=== PATIENT | female | born 1945 | race Caucasian/White ===

== ENCOUNTER 2019-03-08 22:52 | Inpatient (IN) | payer MEDICARE, OTHER ==
[~2019-03-08] VITALS: Ht 157.5 cm; Wt 65.1 kg
--- NOTE | 2019-03-08 23:09 | ERD ---
ER Documentation Chief Complaint Chief Complaint [id number] from home,near syncope,dizziness,A-fib on route to ER per EMS HPI This is a 73-year-old woman with multiple medical conditions brought in by EMS from home for 2 near syncopal episodes this evening when going from a sitting to standing position. Her daughter caught her and prevented her from falling down or injuring herself. Patient states she felt dizzy and lightheaded at the scene and was transported here without further complications. Patient has had no vomiting or diarrhea, no complaints of chest pain or shortness of breath, no recent fevers or chills. Patient and her daughter who is at the bedside deny history of atrial fibrillation. ROS All systems reviewed and are negative except as per history of present illness. Medications Home Meds Reported Medications Paliperidone Palmitate (Invega Sustenna) 234 Mg/1.5 Ml Disp.syrin, IM every 3 months 03/09/19 Labetalol Hcl* (Labetalol Hcl*) 200 Mg Tablet, 0.5 BID 03/09/19 Solifenacin* (Vesicare*) 5 Mg Tablet, 1 HS 03/08/19 Ferrous Sulfate (Iron) 325 Mg Capsule.er, 1 DAILY 03/08/19 Atorvastatin* (Atorvastatin*) 40 Mg Tablet, 1 DAILY 03/08/19 Furosemide (Lasix) 40 Mg Tab, 1 DAILY 03/08/19 Benztropine Mesylate* (Benztropine Mesylate*) 0.5 Mg Tablet, 1 DAILY 03/08/19 Amlodipine Besylate* (Amlodipine Besylate*) 5 Mg Tablet, 1 DAILY 03/08/19 Folic Acid* (Folic Acid*) 1 Mg Tablet, 1 DAILY 03/08/19 Aspirin (Aspirin Low Dose) 81 Mg Tablet.dr, 1 DAILY 03/08/19 Hydralazine Hcl* (Hydralazine Hcl*) 50 Mg Tab, 1 BID 03/08/19 Docusate Sodium (Dok) 100 Mg Capsule, 1 bid prn 03/08/19 Citalopram Hydrobromide* (Citalopram Hydrobromide*) 20 Mg Tablet, 1 DAILY 03/08/19 Calcium Carbonate/Vitamin D2 (Oyster Calcium 250 Mg +D Tab) 1 Tab Tablet, 1 BID 03/08/19 Potassium Chloride (Klor-Con M20) 20 Meq Tab.prt.sr, 1 DAILY 03/08/19 Metformin* (Glucophage*) 1,000 Mg Tablet, 1 BID 03/08/19 Discontinued Reported Medications Labetalol Hcl* (Labetalol Hcl*) 200 Mg Tablet, 1 BID 03/08/19 Allergies Allergies: Coded Allergies: Sulfa (Sulfonamide Antibiotics) (Verified Allergy, Unknown, SOB, 03/08/19) PMhx/Soc Obesity, CHF, CAD status post CABG, hypertension, diabetes mellitus FmHx Family History: diabetes Physical Exam Vitals Vital Signs Date Temp Pulse Resp B/P (MAP) Pulse Ox O2 O2 Flow FiO2 Time Delivery Rate 03/09/19 96 16 119/80 98 Room Air 01:50 (93) 03/09/19 138 16 128/82 98 Room Air 01:35 (97) 03/09/19 130 16 130/72 99 Room Air 01:04 (91) 03/08/19 139 16 145/99 98 Room Air 23:32 (114) 03/08/19 98.4 133 18 149/79 97 23:00 (102) Physical Exam GENERAL: Well-developed, well-nourished, appears dehydrated, afebrile HEENT: Dry mucous membranes, pink conjunctiva, no cervical spine tenderness or step-off deformities NEURO: Alert and oriented 1, able to answer simple questions and follow simple commands, no focal deficits or facial asymmetry, pupils equal round reactive to light CARDIAC: Tachycardic, no murmurs rubs or gallops LUNGS: Clear bilaterally no wheezing crackles or stridor ABDOMEN: Soft nontender, no guarding, no rigidity, no rebound, no psoas sign no obturator sign. SKIN: Warm and dry to touch, no abrasions, contusions, or hematomas, no lacerations, no ecchymosis, no target lesions, and without ulcers EXTREMITIES: No clubbing cyanosis or edema, calves are bilaterally symmetrical, no Homans sign, no popliteal cord sign. Distal pulses equal and bilateral PSYCH: Appears anxious Result Diagram: 03/08/19 2325 03/08/19 2325 Results 24 hrs Laboratory Tests Test 03/08/19 23:25 White Blood Count 9.2 10^3/ul Red Blood Count 3.89 10^6/ul Hemoglobin 11.8 g/dl Hematocrit 35.5 % Mean Corpuscular Volume 91.3 fl Mean Corpuscular Hemoglobin 30.3 pg Mean Corpuscular Hemoglobin Concent 33.2 g/dl Red Cell Distribution Width 12.8 % Platelet Count 266 10^3/UL Mean Platelet Volume 11.2 fl Immature Granulocytes % 0.300 % Neutrophils % 67.3 % Lymphocytes % 19.4 % Monocytes % 8.5 % Eosinophils % 4.0 % Basophils % 0.5 % Nucleated Red Blood Cells % 0.0 /100WBC Immature Granulocytes # 0.030 10^3/ul Neutrophils # 6.2 10^3/ul Lymphocytes # 1.8 10^3/ul Monocytes # 0.8 10^3/ul Eosinophils # 0.4 10^3/ul Basophils # 0.1 10^3/ul Nucleated Red Blood Cells # 0.0 10^3/ul Urine Color YELLOW Urine Clarity SLIGHTLY CLOUDY Urine pH 6.0 Urine Specific [place] 1.009 Urine Ketones NEGATIVE mg/dL Urine Nitrite NEGATIVE mg/dL Urine Bilirubin NEGATIVE mg/dL Urine Urobilinogen NEGATIVE mg/dL Urine Leukocyte Esterase 1+ Estefany/ul Urine Microscopic RBC 2 /HPF Urine Microscopic WBC 13 /HPF Urine Bacteria FEW /HPF Urine Hemoglobin NEGATIVE mg/dL Urine Glucose NEGATIVE mg/dL Urine Total Protein NEGATIVE mg/dl Sodium Level 144 mmol/L Potassium Level 4.3 mmol/L Chloride Level 103 mmol/L Carbon Dioxide Level 24 mmol/L Anion Gap 17 Blood Urea Nitrogen 32 mg/dl Creatinine 1.44 mg/dl Est Glomerular Filtrat Rate mL/min mL/min Glucose Level 146 mg/dl Calcium Level 10.0 mg/dl Total Bilirubin 0.3 mg/dl Direct Bilirubin 0.00 mg/dl Indirect Bilirubin 0.3 mg/dl Aspartate Amino Transf (AST/SGOT) 26 IU/L Alanine Aminotransferase (ALT/SGPT) 16 IU/L Alkaline Phosphatase 71 IU/L Troponin I 0.027 ng/ml B-Type Natriuretic Peptide 2590 PG/ML Total Protein 7.8 g/dl Albumin 4.6 g/dl Globulin 3.20 g/dl Albumin/Globulin Ratio 1.43 Lipase 134 U/L Current Medications Medications Dose Sig/Megan Start Time Status Last (Trade) Ordered Route PRN Stop Time Admin Dose Reason Admin Nicardipine 30 mg ONCE ONCE 03/08/19 DC 03/08/19 HCl PO 23:30 23:32 (Cardene) 03/08/19 23:31 Ceftriaxone 50 ml @ ONCE ONCE 03/09/19 DC 03/09/19 Sodium 100 mls/hr IVPB 01:00 03/09/19 01:03 01:29 Lorazepam 0.5 mg ONCE ONCE 03/09/19 DC 03/09/19 (Ativan) PO 01:00 03/09/19 01:03 01:01 Diltiazem 20 mg ONCE ONCE 03/09/19 DC 03/09/19 HCl IV 01:30 03/09/19 01:34 (Cardizem Iv) 01:31 IV Flush 3 ml PER 03/09/19 (NS 3 ml) PROTOCOL IV 01:30 Ondansetron 4 mg Q6H PRN 03/09/19 HCl (Zofran IV 01:30 Inj) NAUSEA/VOMITI NG Aspirin 81 mg DAILY PO 03/09/19 (Aspirin) 09:00 1 tab Q5M PRN 03/09/19 Nitroglycerin SL .CHEST 01:30 PAIN (Nitroglyceri n (Sl Tab) 0.4 Mg) 650 mg Q6H PRN 03/09/19 Acetaminophen PO .PAIN 1-3 01:30 (Tylenol OR TEMP Tab) Docusate 100 mg Q12H PRN 03/09/19 Sodium PO 01:30 (Colace) .CONSTIPATION Bisacodyl 5 mg DAILY PRN 03/09/19 (Dulcolax) PO 01:30 .CONSTIPATION Magnesium 50 ml @ 25 ONCE ONCE 03/09/19 Sulfate mls/hr IVPB 02:00 03/09/19 03:59 Discontinue ONCE ONCE 03/09/19 DC Miscellaneous current oral XX 02:00 03/09/19 sulfonylur... 02:00 Information (* Miscellaneous Pharmacy Order) Diagnostic 1 ea 02 XX 03/09/19 Test (Pha) 02:00 (Accu-Chek) ONCE ONCE 03/09/19 Miscellaneous HYPOGLYCEMIA XX 02:00 03/09/19 PROTOCOL 02:01 Information w... (* Miscellaneous Pharmacy Order) Insulin NOVOLOG WITH MEALS 03/09/19 Aspart *MILD* BEDTIME SC 08:00 (Novolog ALGORITHM Insulin Pen) Discontinue ONCE ONCE 03/09/19 DC Miscellaneous all previ... XX 02:00 03/09/19 02:00 Information (* Miscellaneous Pharmacy Order) 1 ea NOTE XX 03/09/19 Miscellaneous 02:00 Information Glucose 15 gm Q15M PRN 03/09/19 (Glutose) PO DECREASED 02:00 GLUCOSE Glucose 22.5 gm Q15M PRN 03/09/19 (Glutose) PO DECREASED 02:00 GLUCOSE Dextrose 25 ml Q15M PRN 03/09/19 (D50w IV DECREASED 02:00 Syringe) GLUCOSE Dextrose 50 ml Q15M PRN 03/09/19 (D50w IV DECREASED 02:00 Syringe) GLUCOSE Glucagon 1 mg Q15M PRN 03/09/19 (Glucagen) IM DECREASED 02:00 GLUCOSE Glucose 15 gm Q15M PRN 03/09/19 (Glutose) BUCCAL 02:00 DECREASED GLUCOSE Procedures/MDM IV line was established patient was placed on panel monitor rhythm strip revealed a narrow complex tachycardia at 140 bpm with upright P and T waves. Patient was afebrile EKG performed, read by me revealed an atrial fibrillation with rapid ventricular rate at 134 bpm, normal axis, right ventricular conduction delay QRS duration 100 ms, no concerning ST elevations or depressions noted 1 view chest x-ray performed, read by me reveals atelectatic changes bilaterally, sternotomy wires, no acute infiltrates, no pneumothorax. For A. fib with RVR I administered nicardipine 30 mg p.o. x1. For anxiety I later administer lorazepam 0.5 mg p.o. x1. CBC was unremarkable, electrolytes revealed dehydration with a BUN/creatinine of 32/1.4, liver function tests were normal, troponin was negative, urinalysis positive for infection, BNP elevated I treated her here with ceftriaxone 1 g IV I administered diltiazem 20 mg IV x1 for A. fib with RVR. Critical Care: Time: 43 minutes, this was time separate from other billable procedures. Treatments/Evaluations: Close monitoring and treatment of unstable vital signs, cardiorespiratory, and neurologic status, while maintaining tight balance of fluid, respiratory, and cardiac interventions. Repeat EKG after diltiazem therapy revealed an atrial fibrillation rate controlled at 79 bpm, normal axis, right ventricular conduction delay QRS duration 104 ms, no concerning ST elevations or depressions noted Patient admitted to telemetry setting Departure Diagnosis: Primary Impression: Near syncope Additional Impressions: Atrial fibrillation with RVR Acute dehydration Acute UTI Condition: JULIEN Bhatia MD Mar 08, 2019 23:09
[2019-03-08] MEDS ORDERED: NICARDipine HCL 30 MG CAPSULE PO ONE (23:30)
[2019-03-08] MEDS ORDERED: ATOR40TA68 (23:48)
[2019-03-08] MEDS ORDERED: AMLO-145 (23:48)
[2019-03-08] MEDS ORDERED: ASPI-818 (23:48)
[2019-03-08] MEDS ORDERED: CITA20TA8 (23:48)
[2019-03-08] MEDS ORDERED: POTA20TA9 (23:48)
[2019-03-08] MEDS ORDERED: LABE200T25 (23:48)
[2019-03-08] MEDS ORDERED: FURO40TA4 (23:48)
[2019-03-08] MEDS ORDERED: DOCU-216 (23:48)
[2019-03-08] MEDS ORDERED: CALC-5 (23:48)
[2019-03-08] MEDS ORDERED: BENZ0.5T41 (23:48)
[2019-03-08] MEDS ORDERED: HYDR-3672 (23:48)
[2019-03-08] MEDS ORDERED: FOLI-49 (23:48)
[2019-03-08] MEDS ORDERED: MTF1000T (23:48)
[2019-03-08] MEDS ORDERED: SOLI5TAB2 (23:48)
[2019-03-08] MEDS ORDERED: FERR325C (23:48)
[2019-03-09] VITALS (8 sets, daily range): BP systolic 150–179; BP diastolic 72–84; PULSE 57–72; RESP 18–19; Ht 157.5 cm; Wt 65.1 kg
[2019-03-09] MEDS ORDERED: LABE200T25 (00:11)
[2019-03-09] MEDS ORDERED: PALI234D IM (00:11)
[2019-03-09] MEDS ORDERED: CEFTRIAXONE 1 GM/50 ML (PMX) 50 ML IVPB ONE (01:00)
[2019-03-09] MEDS ORDERED: LORAZEPAM 0.5 MG TAB PO ONE (01:00)
[2019-03-09] MEDS ORDERED: ONDANSETRON 4 MG INJ IV PRN (01:30)
[2019-03-09] MEDS ORDERED: BISACODYL (EC) 5 MG TAB PO PRN (01:30)
[2019-03-09] MEDS ORDERED: DILTIAZEM 25 MG INJ IV ONE (01:30)
[2019-03-09] MEDS ORDERED: ACETAMINOPHEN 325 MG TAB PO PRN (01:30)
[2019-03-09] MEDS ORDERED: NITROGLYCERIN (SL) 0.4 MG TAB SL PRN (01:30)
[2019-03-09] MEDS ORDERED: DOCUSATE SODIUM 100 MG CAP PO PRN (01:30)
[2019-03-09] MEDS ORDERED: NACL 0.9% 3 ML SYG IV SCH (01:30)
[2019-03-09] MEDS ORDERED: GLUCAGON 1 MG INJ IM PRN (02:00)
[2019-03-09] MEDS ORDERED: GLUCOSE GEL 15 GRAM TUBE BUCCAL PRN (02:00)
[2019-03-09] MEDS ORDERED: DEXTROSE 50% 50 ML SYRINGE IV PRN ×2 (02:00)
[2019-03-09] MEDS: ACCU-CHEK XX SCH (02:00)
[2019-03-09] MEDS ORDERED: GLUCOSE GEL 15 GRAM TUBE PO PRN ×2 (02:00)
[2019-03-09] MEDS ORDERED: MAGNESIUM SULFATE 2 GM/50 ML 50 ML IVPB ONE (02:00)
--- NOTE | 2019-03-09 06:52 | HP ---
Date/Time of Note Date/Time of Note DATE: 03/09/19 TIME: 06:47 Assessment/Plan VTE Prophylaxis Pharmacological prophylaxis: LMWH Lines/Catheters IV C[facility]from [facility] Saline Lock Assessment/Plan Hospital Course This is a 73-year female being admitted to the telemetry floor for: #1 A. fib with RVR: Patient converted to normal sinus rhythm after receiving a dose of Cardizem 10 mg IV x1. Will monitor on telemetry. Will check a TSH, magnesium, potassium levels. Will check an echocardiogram. Chadsvasc:4, currently on aspirin 81 mg p.o. daily, will add Lovenox 1 randa per kick every 12 hours renally dose. Will consult cardiology. Further anticoagulations as per cardio recommendations #2 near-syncope:. Possibly secondary to underlying orthostatic hypotension, A. fib with RVR, underlying UTI Will check orthostatics. Carotid Doppler consult cardiology. #3 coronary artery disease: Resume patient's home medications, will check an echocardiogram #4 acute kidney injury: I do not have a previous baseline creatinine.: Possibly secondary to mild dehydration, diuretic use. Avoid nephrotoxic agents, monitor renal function and proceed with further work-up if indicated. #5 normocytic anemia: No signs of bleeding. Will check iron stores #6 elevated BNP: BNP of 2590. Will check an echocardiogram. Consult cardiolo gy. #7. Urinary tract infection:, Ceftriaxone 1 g every 24 hours #8 diabetes mellitus: We will check hemoglobin A1c will hold metformin at the current time, #9 hyperlipidemia: We will check lipid panel, home PPI #10. History of breast cancer: Left breast mastectomy, currently stable #11 DVT GI prophylaxis: Lovenox, no GI prophylaxis indicated Result Diagram: 03/09/19 0550 03/09/19 0550 Results 24hrs Laboratory Tests Test 03/08/19 23:25 03/09/19 05:50 White Blood Count 9.2 7.7 Red Blood Count 3.89 L 3.77 L Hemoglobin 11.8 L 11.5 L Hematocrit 35.5 L 34.2 L Mean Corpuscular Volume 91.3 90.7 Mean Corpuscular Hemoglobin 30.3 30.5 Mean Corpuscular Hemoglobin Concent 33.2 33.6 Red Cell Distribution Width 12.8 12.7 Platelet Count 266 243 Mean Platelet Volume 11.2 H 11.8 H Immature Granulocytes % 0.300 0.300 Neutrophils % 67.3 59.5 Lymphocytes % 19.4 26.5 Monocytes % 8.5 10.0 Eosinophils % 4.0 3.1 Basophils % 0.5 0.6 Nucleated Red Blood Cells % 0.0 0.0 Immature Granulocytes # 0.030 0.020 Neutrophils # 6.2 4.6 Lymphocytes # 1.8 2.1 Monocytes # 0.8 0.8 Eosinophils # 0.4 0.2 Basophils # 0.1 0.1 Nucleated Red Blood Cells # 0.0 0.0 Urine Color YELLOW Urine Clarity SLIGHTLY CLOUDY A Urine pH 6.0 Urine Specific [place] 1.009 Urine Ketones NEGATIVE Urine Nitrite NEGATIVE Urine Bilirubin NEGATIVE Urine Urobilinogen NEGATIVE Urine Leukocyte Esterase 1+ H Urine Microscopic RBC 2 Urine Microscopic WBC 13 H Urine Bacteria FEW A Urine Hemoglobin NEGATIVE Urine Glucose NEGATIVE Urine Total Protein NEGATIVE Sodium Level 144 142 Potassium Level 4.3 4.3 Chloride Level 103 104 Carbon Dioxide Level 24 25 Anion Gap 17 H 13 Blood Urea Nitrogen 32 H 38 H Creatinine 1.44 H 1.22 H Est Glomerular Filtrat Rate mL/min Glucose Level 146 104 # Calcium Level 10.0 9.6 Total Bilirubin 0.3 0.3 Direct Bilirubin 0.00 0.00 Indirect Bilirubin 0.3 0.3 Aspartate Amino Transf (AST/SGOT) 26 37 Alanine Aminotransferase (ALT/SGPT) 16 11 L Alkaline Phosphatase 71 75 Troponin I 0.027 B-Type Natriuretic Peptide 2590 H Total Protein 7.8 7.9 Albumin 4.6 4.5 Globulin 3.20 3.40 H Albumin/Globulin Ratio 1.43 1.32 Lipase 134 Prothrombin Time 12.7 Prothrombin Time Ratio 1.0 INR International Normalized Ratio 0.94 Activated Partial Thromboplast Time 27.5 Magnesium Level 1.9 HPI/ROS Admit Date/Time Admit Date/Time Mar 09, 2019 at 01:31 Hx of Present Illness Chief complaint: Near syncope, dizziness This is a 73-year-old woman with with past medical history of schizophrenia, hypertension, diabetes mellitus, hyperlipidemia, breast cancer who presented via EMS from home fort two near syncopal episodes that occurred last night from a sitting to standing position. Her daughter caught her and prevented her from falling down or injuring herself. Patient states she felt dizzy and lightheaded at the scene and was transported here without further complications. Patient has had no vomiting or diarrhea, no complaints of chest pain or shortness of breath, no recent fevers or chills. Patient and her daughter who is at the bedside deny history of atrial fibrillation. She was in rapid A. fib with RVR in the emergency department, she did receive a dose of Cardizem 20 mg IV x1 which did result in good response and converted the patient back to sinus rhythm. I also ordered magnesium 2 mg IV x1 Allergies: NKDA medications: Colace 100 mg p.o. twice daily as needed Lasix 40 mg p.o. daily Hydralazine 50 mg p.o. twice daily Labetalol 200 half tab Metformin 1000 mg p.o. twice daily Potassium chloride 20 me q. p.o. daily Vesicare 5 mg p.o. nightly Iron ferrous sulfate 1 tablet daily Invega Sustenna to 34 mg injections 3 months ROS Const: As per HPI Eyes : No pain discharge or redness or change in visual acuity ENT: No pain, sore throat, congestion, congestion, dysphagia or discharge Respiratory: As per HPI Cardiovascular: No chest pain, palpitation, PND, or edema GI : no change in appetite, abdominal pain, nausea, vomiting, diarrhea, constipation, or change in the color his stool Genitourinary: No dysuria, hematuria, flank pain , discharge or CVA tenderness Musculoskeletal: No joint pain, back pain, neck pain, restricted range of motion in neck or joints Skin: No rash, bruising or hives Neuro: No headache, dizziness, syncope, seizure, focal weakness Endocrine: No polyuria, polydipsia, temperature intolerance Psych: No hallucination, depression, anxiety or suicidal ideation PMH/Family/Social Past Medical History Hypertension, diabetes mellitus, hyperlipidemia, history of breast CA Medications Current Medications IV Flush (NS 3 ml) 3 ml PER PROTOCOL IV ; Start 03/09/19 at 01:30 Ondansetron HCl (Zofran Inj) 4 mg Q6H PRN IV NAUSEA/VOMITING; Start 03/09/19 at 01:30 Aspirin (Aspirin) 81 mg DAILY PO ; Start 03/09/19 at 09:00 Nitroglycerin (Nitroglycerin (Sl Tab) 0.4 Mg) 1 tab Q5M PRN SL .CHEST PAIN; Start 03/09/19 at 01:30 Acetaminophen (Tylenol Tab) 650 mg Q6H PRN PO .PAIN 1-3 OR TEMP; Start 03/09/19 at 01:30 Docusate Sodium (Colace) 100 mg Q12H PRN PO .CONSTIPATION; Start 03/09/19 at 01:30 Bisacodyl (Dulcolax) 5 mg DAILY PRN PO .CONSTIPATION; Start 03/09/19 at 01:30 Diagnostic Test (Pha) (Accu-Chek) 1 ea 02 XX ; Start 03/09/19 at 02:00 Insulin Aspart (Novolog Insulin Pen) NOVOLOG *MILD* ALGORITHM WITH MEALS BEDTIME SC ; Start 03/09/19 at 07:55 Miscellaneous Information 1 ea NOTE XX ; Start 03/09/19 at 02:00 Glucose (Glutose) 15 gm Q15M PRN PO DECREASED GLUCOSE; Start 03/09/19 at 02:00 Glucose (Glutose) 22.5 gm Q15M PRN PO DECREASED GLUCOSE; Start 03/09/19 at 02:00 Dextrose (D50w Syringe) 25 ml Q15M PRN IV DECREASED GLUCOSE; Start 03/09/19 at 02:00 Dextrose (D50w Syringe) 50 ml Q15M PRN IV DECREASED GLUCOSE; Start 03/09/19 at 02:00 Glucagon (Glucagen) 1 mg Q15M PRN IM DECREASED GLUCOSE; Start 03/09/19 at 02:00 Glucose (Glutose) 15 gm Q15M PRN BUCCAL DECREASED GLUCOSE; Start 03/09/19 at 02:00 Ceftriaxone Sodium 50 ml @ 100 mls/hr Q24H IVPB ; Start 03/10/19 at 01:00 Coded Allergies: Sulfa (Sulfonamide Antibiotics) (Verified Allergy, Unknown, SOB, 03/08/19) Past Surgical History Left breast mastectomy, CABG Social History Alcohol Use: none Smoking Status: Never smoker Drug Use: none Exam/Review of Systems Vital Signs Vitals Vital Signs Date Temp Pulse Resp B/P (MAP) Pulse Ox O2 O2 Flow FiO2 Time Delivery Rate 03/09/19 71 16 118/71 97 Room Air 04:35 (87) 03/09/19 98.2 04:00 Exam Exam General: Patient is currently lying in bed in no acute distress HEENT: Atraumatic, normocephalic. The pupils are equal, round and reactive. Extraocular motor are intact Neck: Supple with full range of motion. No rigidity or meningismus Chest: Nontender Lungs: Clear to auscultation bilaterally no crackles rales or wheezing Heart: Initially presented in A. fib with RVR, currently sinus rhythm Abdomen: Soft , nontender, nondistended , bowel sounds are present. No guarding no rebound tenderness , No masses or organomegaly. No costovertebral temporal angle mass Extremities: Normal to inspection, no edema no cyanosis Neurologic: Normal mental status, speech normal, cranial nerves II through XII are intact, motor and sensory are intact, no focal weakness Additional Comments PROCEDURE: One view chest radiograph. CLINICAL INDICATION: Abdominal pain TECHNIQUE: An AP view of the chest was obtained. COMPARISON: None FINDINGS: Mediastinum: There is calcification of the wall of the thoracic aorta. Heart size: Normal Pulmonary vasculature: No visible engorgement. Lungs: Clear. Costophrenic sulci: Clear. Bony structures: Median sternotomy wires are present at the level of the aortic arch with surgical clips superimposed on the right hilum. IMPRESSION: 1. Atherosclerosis of the thoracic aorta. 2. No radiographic evidence of acute process in the chest. 3. Evidence of previous surgery. RPTAT:AAJJ Physician El Date Time Electronically viewed and signed by Physician El on 03/09/2019 00:05 GW/ CC: JULIEN GREWAL MD [id number] AMRIT CONDE Mar 09, 2019 06:52
[2019-03-09] MEDS: INSULIN ASPART [NOVOLOG] 3 ML PEN SC SCH ×4 (07:55→21:00)
[2019-03-09] MEDS: ASPIRIN 81 MG TAB PO SCH (08:31)
[2019-03-09] MEDS ORDERED: METOPROLOL 5 MG INJ IV PRN (09:30)
[2019-03-09] MEDS: CITALOPRAM 20 MG TAB PO SCH (11:06)
[2019-03-09] MEDS: BENZTROPINE 1 MG TAB PO SCH (11:06)
[2019-03-09] MEDS: AMLODIPINE 5 MG TAB PO SCH (11:06)
[2019-03-09] MEDS: FOLIC ACID 1 MG TAB PO SCH (11:06)
[2019-03-09] MEDS: FUROSEMIDE 40 MG TAB PO SCH (11:07)
[2019-03-09] MEDS: ENOXAPARIN 80 MG/0.8 ML SYG SC SCH ×2 (11:13→20:37)
--- NOTE | 2019-03-09 14:54 | PN ---
Date/Time of Note Date/Time of Note DATE: 03/09/19 TIME: 14:46 Assessment/Plan VTE Prophylaxis Risk score (from [facility])>0 risk: 2 SCD applied (from [facility]): Yes Pharmacological prophylaxis: LMWH Lines/Catheters IV Catheter Type (from [facility]): Saline Lock Assessment/Plan Hospital Course Assessment and plan 1. A. fib with RVR. - Was given Cardizem 10 mg IV x1 and now appears to be normal sinus rhythm. - Continue telemetry monitoring. - Beet Flumer to follow. - Awaiting echocardiogram. 2. Near syncope. - Likely secondary to #1. - Suspect orthostatic hypotension. - Carotid Doppler with no evidence of hemodynamically significant stenosis. 3. CAD. - Continue statin and antiplatelet therapy. 4. Acute kidney injury. - Monitor renal panel. - Avoid nephrotoxic medications. - Appears to be improving at present. 5. Reported elevated BNP. - Echocardiogram pending. 6. Diabetes. - Continue insulin regimen. - Will adjust as needed. 7. Hyperlipidemia. - Continue statin 8. History of breast cancer. - Patient for outpatient follow-up Disposition and plan. Awaiting cardiology consultation. Echocardiogram pending. Continue monitoring. Discussed POC with Dr. Christina Result Diagram: 03/09/19 0550 03/09/19 0550 Results 24hrs Laboratory Tests Test 03/08/19 23:25 03/09/19 05:50 03/09/19 07:55 03/09/19 11:18 White Blood Count 9.2 7.7 Red Blood Count 3.89 L 3.77 L Hemoglobin 11.8 L 11.5 L Hematocrit 35.5 L 34.2 L Mean Corpuscular 91.3 90.7 Volume Mean Corpuscular 30.3 30.5 Hemoglobin Mean Corpuscular 33.2 33.6 Hemoglobin Concent Red Cell 12.8 12.7 Distribution Width Platelet Count 266 243 Mean Platelet 11.2 H 11.8 H Volume Immature 0.300 0.300 Granulocytes % Neutrophils % 67.3 59.5 Lymphocytes % 19.4 26.5 Monocytes % 8.5 10.0 Eosinophils % 4.0 3.1 Basophils % 0.5 0.6 Nucleated Red 0.0 0.0 Blood Cells % Immature 0.030 0.020 Granulocytes # Neutrophils # 6.2 4.6 Lymphocytes # 1.8 2.1 Monocytes # 0.8 0.8 Eosinophils # 0.4 0.2 Basophils # 0.1 0.1 Nucleated Red 0.0 0.0 Blood Cells # Urine Color YELLOW Urine Clarity SLIGHTLY CLOUDY A Urine pH 6.0 Urine Specific 1.009 [place] Urine Ketones NEGATIVE Urine Nitrite NEGATIVE Urine Bilirubin NEGATIVE Urine Urobilinogen NEGATIVE Urine Leukocyte 1+ H Esterase Urine Microscopic 2 RBC Urine Microscopic 13 H WBC Urine Bacteria FEW A Urine Hemoglobin NEGATIVE Urine Glucose NEGATIVE Urine Total NEGATIVE Protein Sodium Level 144 142 Potassium Level 4.3 4.3 Chloride Level 103 104 Carbon Dioxide 24 25 Level Anion Gap 17 H 13 Blood Urea 32 H 38 H Nitrogen Creatinine 1.44 H 1.22 H Est Glomerular Filtrat Rate mL/min Glucose Level 146 104 # Calcium Level 10.0 9.6 Total Bilirubin 0.3 0.3 Direct Bilirubin 0.00 0.00 Indirect Bilirubin 0.3 0.3 Aspartate Amino 26 37 Transf (AST/SGOT) Alanine 16 11 L Aminotransferase ( ALT/SGPT) Alkaline 71 75 Phosphatase Troponin I 0.027 B-Type Natriuretic 2590 H Peptide Total Protein 7.8 7.9 Albumin 4.6 4.5 Globulin 3.20 3.40 H Albumin/Globulin 1.43 1.32 Ratio Lipase 134 Prothrombin Time 12.7 Prothrombin Time 1.0 Ratio INR International 0.94 Normalized Ratio Activated 27.[address] Time Magnesium Level 1.9 Bedside Glucose 104 180 Subjective 24 Hr Interval Summary Free Text/Dictation Denies any chest pain at this time. Comfortable present. 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1 Basophils % 0.5 0.6 Nucleated Red 0.0 0.0 Blood Cells % Immature 0.030 0.020 Granulocytes # Neutrophils # 6.2 4.6 Lymphocytes # 1.8 2.1 Monocytes # 0.8 0.8 Eosinophils # 0.4 0.2 Basophils # 0.1 0.1 Nucleated Red 0.0 0.0 Blood Cells # Urine Color YELLOW Urine Clarity SLIGHTLY CLOUDY A Urine pH 6.0 Urine Specific 1.009 [place] Urine Ketones NEGATIVE Urine Nitrite NEGATIVE Urine Bilirubin NEGATIVE Urine Urobilinogen NEGATIVE Urine Leukocyte 1+ H Esterase Urine Microscopic 2 RBC Urine Microscopic 13 H WBC Urine Bacteria FEW A Urine Hemoglobin NEGATIVE Urine Glucose NEGATIVE Urine Total NEGATIVE Protein Sodium Level 144 142 Potassium Level 4.3 4.3 Chloride Level 103 104 Carbon Dioxide 24 25 Level Anion Gap 17 H 13 Blood Urea 32 H 38 H Nitrogen Creatinine 1.44 H 1.22 H Est Glomerular Filtrat Rate mL/min Glucose Level 146 104 # Calcium Level 10.0 9.6 Total Bilirubin 0.3 0.3 Direct Bilirubin 0.00 0.00 Indirect Bilirubin 0.3 0.3 Aspartate Amino 26 37 Transf (AST/SGOT) Alanine 16 11 L Aminotransferase ( ALT/SGPT) Alkaline 71 75 Phosphatase Troponin I 0.027 B-Type Natriuretic 2590 H Peptide Total Protein 7.8 7.9 Albumin 4.6 4.5 Globulin 3.20 3.40 H Albumin/Globulin 1.43 1.32 Ratio Lipase 134 Prothrombin Time 12.7 Prothrombin Time 1.0 Ratio INR International 0.94 Normalized Ratio Activated 27.[address] Time Magnesium Level 1.9 Bedside Glucose 104 180 Medications Medication Current Medications IV Flush (NS 3 ml) 3 ml PER PROTOCOL IV ; Start 03/09/19 at 01:30 Ondansetron HCl (Zofran Inj) 4 mg Q6H PRN IV NAUSEA/VOMITING; Start 03/09/19 at 01:30 Aspirin (Aspirin) 81 mg DAILY PO Last administered on 03/09/19at 08:31; Admin Dose 81 MG; Start 03/09/19 at 09:00 Nitroglycerin (Nitroglycerin (Sl Tab) 0.4 Mg) 1 tab Q5M PRN SL .CHEST PAIN; Start 03/09/19 at 01:30 Acetaminophen (Tylenol Tab) 650 mg Q6H PRN PO .PAIN 1-3 OR TEMP; Start 03/09/19 at 01:30 Docusate Sodium (Colace) 100 mg Q12H PRN PO .CONSTIPATION; Start 03/09/19 at 01:30 Bisacodyl (Dulcolax) 5 mg DAILY PRN PO .CONSTIPATION; Start 03/09/19 at 01:30 Diagnostic Test (Pha) (Accu-Chek) 1 ea 02 XX ; Start 03/09/19 at 02:00 Insulin Aspart (Novolog Insulin Pen) NOVOLOG *MILD* ALGORITHM WITH MEALS BEDTIME SC Last administered on 03/09/19at 11:29; Admin Dose 1 UNIT; Start 03/09/19 at 07:55 Miscellaneous Information 1 ea NOTE XX ; Start 03/09/19 at 02:00 Glucose (Glutose) 15 gm Q15M PRN PO DECREASED GLUCOSE; Start 03/09/19 at 02:00 Glucose (Glutose) 22.5 gm Q15M PRN PO DECREASED GLUCOSE; Start 03/09/19 at 02:00 Dextrose (D50w Syringe) 25 ml Q15M PRN IV DECREASED GLUCOSE; Start 03/09/19 at 02:00 Dextrose (D50w Syringe) 50 ml Q15M PRN IV DECREASED GLUCOSE; Start 03/09/19 at 02:00 Glucagon (Glucagen) 1 mg Q15M PRN IM DECREASED GLUCOSE; Start 03/09/19 at 02:00 Glucose (Glutose) 15 gm Q15M PRN BUCCAL DECREASED GLUCOSE; Start 03/09/19 at 02:00 Ceftriaxone Sodium 50 ml @ 100 mls/hr Q24H IVPB ; Start 03/10/19 at 01:00 Amlodipine Besylate (Norvasc) 5 mg DAILY PO Last administered on 03/09/19at 11:06; Admin Dose 5 MG; Start 03/09/19 at 09:30 Aspirin (Halfprin) 81 mg DAILY PO ; Start 03/10/19 at 09:00 Atorvastatin Calcium (Lipitor) 80 mg DAILY PO ; Start 03/10/19 at 09:00 Folic Acid (Folic Acid) 1 mg DAILY PO Last administered on 03/09/19at 11:06; Admin Dose 1 MG; Start 03/09/19 at 09:30 Benztropine Mesylate (Cogentin) 0.5 mg DAILY PO Last administered on 03/09/19at 11:06; Admin Dose 0.5 MG; Start 03/09/19 at 09:30 Citalopram Hydrobromide (Celexa) 20 mg DAILY PO Last administered on 03/09/19 11:06; Admin Dose 20 MG; Start 03/09/19 at 09:30 Metoprolol Tartrate (Lopressor) 2.5 mg Q6H PRN IV HEART RATE GREATER THAN 115; Start 03/09/19 at 09:30 Enoxaparin Sodium (Lovenox) 65 mg Q12 SC Last administered on 03/09/19at 11:13; Admin Dose 65 MG; Start 03/09/19 at 10:30 Furosemide (Lasix) 40 mg DAILY PO Last administered on 03/09/19at 11:07; Admin Dose 40 MG; Start 03/09/19 at 10:30 WENCESLAO LARES NP Mar 09, 2019 14:54
--- NOTE | 2019-03-09 17:25 | RADRPT ---
Echocardiogram Report Patient Name: DUANE PIPERPatient ID: [id number] : 1945 (73y 8m)Study Date: 03/09/2019 10:00:35 AM Gender: FAccession #: [id number] Tech: Ramos Cavazos [facility] Location: [address] Ref.Physician: AMRIT CONDE Height(Cm): BSA: Weight(Kg): Quality: AdequateOrder Physician: AMRIT CONDE Account #: Procedures: Echocardiographic Report: Transthoracic echocardiogram with complete 2D, M-Mode, and doppler examination. Indications: Rapid Atrial Fibrillation w/ RVR. Measurements: 2D/M Mode Doppler Measurement Value Normal Range Measurement Value Normal Range LVIDd 2D 4.2 [ 3.8 - 5.2 ] cm AV Mean Garret 2.0 [ 70.0 - 90.0 ] cm/sec LVIDs 2D 2.9 [ 2.2 - 3.5 ] cm AV Mean PG 18.0 [ 2.0 - 4.0 ] mmHg LVPWd 2D 0.9 [ 0.6 - 0.9 ] cm AV VTI 60.8 cm IVSd 2D 1.1 [ 0.6 - 0.9 ] cm LVOT Peak Garret 1.3 [ 70.0 - 110.0 ] cm/sec AoR Diam 2D 2.5 [ 2.3 - 3.1 ] cm LVOT Peak PG 7.0 [ 2.0 - 6.0 ] mmHg EDV 2D 79.9 [ 46.0 - 106.0 ] ml MV E Peak Garret 1.4 [ 60.0 - 130.0 ] cm/sec ESV 2D 31.9 [ 14.0 - 42.0 ] ml MV A Peak Garret 1.1 [ 100.0 - 120.0 ] cm/sec EF 2D 60.1 [ 54.0 - 74.0 ] percent MV E/A 1.3 [ 0.8 - 1.5 ] ratio LA Dimen 2D 3.8 [ 2.7 - 3.8 ] cm MV Peak Garret 1.6 [ 60.0 - 130.0 ] cm/sec MV Peak PG 10.0 [ 1.0 - 10.0 ] mmHg MV Mean Garret 0.7 cm/sec MV Mean PG 3.0 mmHg MV Decel Time 279 [ 104 - 258 ] msec Lat E` Garret 0.1 [ 10.0 - 15.0 ] cm/sec Lateral E/E` 22.4 [ 1.0 - 2.0 ] ratio Med E` Garret 0.0 cm/sec MV E/A 1.3 [ 0.8 - 1.5 ] ratio MV VTI 40.9 cm TR Peak Garret 2.8 [ 100.0 - 280.0 ] cm/sec TR Peak PG 32.0 mmHg RVSP 42.0 [ 10.0 - 36.0 ] mmHg Findings: Left Ventricle: Normal left ventricular systolic function. Normal left ventricular cavity size. Mild concentric left ventricular hypertrophy. Ejection fraction is visually estimated at 65 %. Tissue Doppler/Mitral Doppler indices are consistent with impaired relaxation (Stage I diastolic dysfunction). Right Ventricle: Normal right ventricular size. Normal right ventricular systolic function. Left Atrium: There is mild enlargement of left atrium. Right Atrium: The right atrium is normal in size. Mitral Valve: Mitral valve leaflets appear mildly thickened. Moderate mitral annular calcification. Trace mitral regurgitation. Aortic Valve: Aortic Valve Bio Prosthesis. Aortic valve Max velocity 2.67 m/sec. Max PG 28.50 mmHg. Mean PG 18.00 mmHg. Aortic cusps appear mildly calcified. Tricuspid Valve: Normal appearance of the tricuspid valve. The estimated Peak RVSP is 42 mmHg. There is mild tricuspid regurgitation. Pericardium: Normal pericardium with no significant pericardial effusion. Aorta: Normal aortic root. IVC: Normal size and normal respiratory collapse consistent with normal right atrial pressure. Conclusions: There is mild enlargement of left atrium. Normal left ventricular systolic function. Normal left ventricular cavity size. Mild concentric left ventricular hypertrophy. Ejection fraction is visually estimated at 65 %. Tissue Doppler/Mitral Doppler indices are consistent with impaired relaxation (Stage I diastolic dysfunction). Mitral valve leaflets appear mildly thickened. Moderate mitral annular calcification. Trace mitral regurgitation. Aortic Valve is proobably Bio Prosthesis. Aortic valve Max velocity 2.67 m/sec. Max PG 28.50 mmHg. Mean PG 18.00 mmHg. Aortic cusps appear mildly calcified. Normal appearance of the tricuspid valve. The estimated Peak RVSP is 42 mmHg. There is mild tricuspid regurgitation. Electronically Signed By: Collins Cross 2019-03-09 17:24:15 PDT
--- NOTE | 2019-03-09 17:32 | CONS ---
Assessment/Plan Assessment/Plan Hospital Course (Demo Recall) 1. Atrial fibrillation rapid ventricular response has converted back to sinus rhythm now 2. Dizziness orthostatic symptoms tolerated above 3. History of hypertension 4. History of valvular heart disease likely aortic valve replacement 5. Diabetes 6. Dyslipidemia 7. History of schizophrenia Recommendation: Continue with aspirin for now. Monitor on telemetry leg swelling: Potassium magnesium to be replaced to keep magnesium above 2 potassium above 4 I will add sotalol to her regimen to replace the labetalol. We will continue the rest of her blood pressure medications. Thyroid function test has been ordered. Will follow DC planning tomorrow if remains stable in sinus Thank you for this referral. We will continue to follow along with you GIGI VILLANUEVA MD [facility] Consultation Date/Type/Reason Admit Date/Time Mar 09, 2019 at 01:31 Date of Consultation: Mar 09, 2019 Type of Consult Cardiology Reason for Consultation AFIB Requesting Provider: AMRIT CONDE Date/Time of Note DATE: 03/09/19 TIME: 17:24 Hx of Present Illness Interventional cardiology consultation note Chief complaint: dizziness Reason for consult: afib History of present illness: Thank you for this referral. History was informed patient was a fair historian discussion with the staff and physicians review of the chart. This is a pleasant 73-year-old woman with with past medical history of schizo phrenia, hypertension, diabetes mellitus, hyperlipidemia, valvular heart disease most likely aortic valve replacement breast cancer who [place] near syncopal episodes that occurred at night from a sitting to standing position. Her daughter caught her and prevented her from falling down or injuring herself. Patient states she felt dizzy and lightheaded but no randy syncope. Patient has had no vomiting or diarrhea, no complaints of chest pain or shortness of breath, no recent fevers or chills. There is no known history of atrial fibrillation in the past but patient was in atrial fibrillation rapid ventricular response in the emergency room.. she did receive a dose of Cardizem 20 mg IV x1 which did result in good response and converted the patient back to sinus rhythm. She has remained in sinus rhythm since then. She is feeling much better now Allergies: NKDA medications at home: Colace 100 mg p.o. twice daily as needed Lasix 40 mg p.o. daily Hydralazine 50 mg p.o. twice daily Labetalol 200 half tab twice daily Metformin 1000 mg p.o. twice daily Potassium chloride 20 me q. p.o. daily Vesicare 5 mg p.o. nightly Iron ferrous sulfate 1 tablet daily Invega Sustenna to 34 mg injections 3 months Family history: No reported history of early coronary artery disease Social history: Non-smoker Past medical history: History of valvular heart disease status post what appears to be most likely bioprosthetic aortic valve replacement 2 years ago probably at [facility]. Hypertension diabetes lipidemia [place] schizophrenia dyslipidemia. Review of system: Patient denies all others except for above-mentioned Past Medical History Home Meds Reported Medications Paliperidone Palmitate (Invega Sustenna) 234 Mg/1.5 Ml Disp.syrin, IM every 3 months 03/09/19 Labetalol Hcl* (Labetalol Hcl*) 200 Mg Tablet, 0.5 BID 03/09/19 Solifenacin* (Vesicare*) 5 Mg Tablet, 1 HS 03/08/19 Ferrous Sulfate (Iron) 325 Mg Capsule.er, 1 DAILY 03/08/19 Atorvastatin* (Atorvastatin*) 40 Mg Tablet, 1 DAILY 03/08/19 Furosemide (Lasix) 40 Mg Tab, 1 DAILY 03/08/19 Benztropine Mesylate* (Benztropine Mesylate*) 0.5 Mg Tablet, 1 DAILY 03/08/19 Amlodipine Besylate* (Amlodipine Besylate*) 5 Mg Tablet, 1 DAILY 03/08/19 Folic Acid* (Folic Acid*) 1 Mg Tablet, 1 DAILY 03/08/19 Aspirin (Aspirin Low Dose) 81 Mg Tablet.dr, 1 DAILY 03/08/19 Hydralazine Hcl* (Hydralazine Hcl*) 50 Mg Tab, 1 BID 03/08/19 Docusate Sodium (Dok) 100 Mg Capsule, 1 bid prn 03/08/19 Citalopram Hydrobromide* (Citalopram Hydrobromide*) 20 Mg Tablet, 1 DAILY 03/08/19 Calcium Carbonate/Vitamin D2 (Oyster Calcium 250 Mg +D Tab) 1 Tab Tablet, 1 BID 03/08/19 Potassium Chloride (Klor-Con M20) 20 Meq Tab.prt.sr, 1 DAILY 03/08/19 Metformin* (Glucophage*) 1,000 Mg Tablet, 1 BID 03/08/19 Discontinued Reported Medications Labetalol Hcl* (Labetalol Hcl*) 200 Mg Tablet, 1 BID 03/08/19 Medications Current Medications IV Flush (NS 3 ml) 3 ml PER PROTOCOL IV ; Start 03/09/19 at 01:30 Ondansetron HCl (Zofran Inj) 4 mg Q6H PRN IV NAUSEA/VOMITING; Start 03/09/19 at 01:30 Aspirin (Aspirin) 81 mg DAILY PO Last administered on 03/09/19at 08:31; Admin Dose 81 MG; Start 03/09/19 at 09:00 Nitroglycerin (Nitroglycerin (Sl Tab) 0.4 Mg) 1 tab Q5M PRN SL .CHEST PAIN; Start 03/09/19 at 01:30 Acetaminophen (Tylenol Tab) 650 mg Q6H PRN PO .PAIN 1-3 OR TEMP; Start 03/09/19 at 01:30 Docusate Sodium (Colace) 100 mg Q12H PRN PO .CONSTIPATION; Start 03/09/19 at 01:30 Bisacodyl (Dulcolax) 5 mg DAILY PRN PO .CONSTIPATION; Start 03/09/19 at 01:30 Diagnostic Test (Pha) (Accu-Chek) 1 ea 02 XX ; Start 03/09/19 at 02:00 Insulin Aspart (Novolog Insulin Pen) NOVOLOG *MILD* ALGORITHM WITH MEALS BEDTIME SC Last administered on 03/09/19at 16:59; Admin Dose 1 UNIT; Start 03/09/19 at 07:55 Miscellaneous Information 1 ea NOTE XX ; Start 03/09/19 at 02:00 Glucose (Glutose) 15 gm Q15M PRN PO DECREASED GLUCOSE; Start 03/09/19 at 02:00 Glucose (Glutose) 22.5 gm Q15M PRN PO DECREASED GLUCOSE; Start 03/09/19 at 02:00 Dextrose (D50w Syringe) 25 ml Q15M PRN IV DECREASED GLUCOSE; Start 03/09/19 at 02:00 Dextrose (D50w Syringe) 50 ml Q15M PRN IV DECREASED GLUCOSE; Start 03/09/19 at 02:00 Glucagon (Glucagen) 1 mg Q15M PRN IM DECREASED GLUCOSE; Start 03/09/19 at 02:00 Glucose (Glutose) 15 gm Q15M PRN BUCCAL DECREASED GLUCOSE; Start 03/09/19 at 02:00 Ceftriaxone Sodium 50 ml @ 100 mls/hr Q24H IVPB ; Start 03/10/19 at 01:00 Amlodipine Besylate (Norvasc) 5 mg DAILY PO Last administered on 03/09/19at 11:06; Admin Dose 5 MG; Start 03/09/19 at 09:30 Aspirin (Halfprin) 81 mg DAILY PO ; Start 03/10/19 at 09:00 Atorvastatin Calcium (Lipitor) 80 mg DAILY PO ; Start 03/10/19 at 09:00 Folic Acid (Folic Acid) 1 mg DAILY PO Last administered on 03/09/19at 11:06; Admin Dose 1 MG; Start 03/09/19 at 09:30 Benztropine Mesylate (Cogentin) 0.5 mg DAILY PO Last administered on 03/09/19at 11:06; Admin Dose 0.5 MG; Start 03/09/19 at 09:30 Citalopram Hydrobromide (Celexa) 20 mg DAILY PO Last administered on 03/09/19at 11:06; Admin Dose 20 MG; Start 03/09/19 at 09:30 Metoprolol Tartrate (Lopressor) 2.5 mg Q6H PRN IV HEART RATE GREATER THAN 115; Start 03/09/19 at 09:30 Enoxaparin Sodium (Lovenox) 65 mg Q12 SC Last administered on 03/09/19at 11:13; Admin Dose 65 MG; Start 03/09/19 at 10:30 Furosemide (Lasix) 40 mg DAILY PO Last administered on 03/09/19at 11:07; Admin Dose 40 MG; Start 03/09/19 at 10:30 Sotalol HCl (Betapace) 40 mg BID PO ; Start 03/09/19 at 21:00; Status UNV Allergies: Coded Allergies: Sulfa (Sulfonamide Antibiotics) (Verified Allergy, Unknown, SOB, 03/08/19) Social History Alcohol Use: none Smoking Status: Never smoker Drug Use: none Exam/Review of Systems Vital Signs Vitals Vital Signs Date Temp Pulse Resp B/P (MAP) Pulse Ox O2 O2 Flow FiO2 Time Delivery Rate 03/09/19 98.3 72 18 153/72 93 15:30 (99) 03/09/19 Room Air 04:35 Exam Exam General: no acute distress HEENT: NC/AT. pupils are equal. round. NECK: NO JVD. no stridor. Chest: Status post sternotomy CV: RRR. systolic murmur; no gallop or rubs. PULM: no wheezing or rhonchi. GI: SOFT, NT, ND, no rebound or guarding Extremity: trace B/L LE edema. no clubbing. neuro: awake and alert, OX3. Psych: calm and pleasant rectal: deferred EKG done in the emergency room showed atrial fibrillation. Heart controlled at 80. ST-T wave abnormality suggestive of inferolateral ischemia Echocardiogram was personally reviewed which showed normal LV size and systolic function. Aortic valve appears to be probably bioprosthetic Labs Result Diagram: 03/09/19 0550 03/09/19 0550 Results 24hrs Laboratory Tests Test 03/08/19 23:25 03/09/19 05:50 03/09/19 07:55 03/09/19 11:18 White Blood Count 9.2 7.7 Red Blood Count 3.89 L 3.77 L Hemoglobin 11.8 L 11.5 L Hematocrit 35.5 L 34.2 L Mean Corpuscular 91.3 90.7 Volume Mean Corpuscular 30.3 30.5 Hemoglobin Mean Corpuscular 33.2 33.6 Hemoglobin Concent Red Cell 12.8 12.7 Distribution Width Platelet Count 266 243 Mean Platelet 11.2 H 11.8 H Volume Immature 0.300 0.300 Granulocytes % Neutrophils % 67.3 59.5 Lymphocytes % 19.4 26.5 Monocytes % 8.5 10.0 Eosinophils % 4.0 3.1 Basophils % 0.5 0.6 Nucleated Red 0.0 0.0 Blood Cells % Immature 0.030 0.020 Granulocytes # Neutrophils # 6.2 4.6 Lymphocytes # 1.8 2.1 Monocytes # 0.8 0.8 Eosinophils # 0.4 0.2 Basophils # 0.1 0.1 Nucleated Red 0.0 0.0 Blood Cells # Urine Color YELLOW Urine Clarity SLIGHTLY CLOUDY A Urine pH 6.0 Urine Specific 1.009 [place] Urine Ketones NEGATIVE Urine Nitrite NEGATIVE Urine Bilirubin NEGATIVE Urine Urobilinogen NEGATIVE Urine Leukocyte 1+ H Esterase Urine Microscopic 2 RBC Urine Microscopic 13 H WBC Urine Bacteria FEW A Urine Hemoglobin NEGATIVE Urine Glucose NEGATIVE Urine Total NEGATIVE Protein Sodium Level 144 142 Potassium Level 4.3 4.3 Chloride Level 103 104 Carbon Dioxide 24 25 Level Anion Gap 17 H 13 Blood Urea 32 H 38 H Nitrogen Creatinine 1.44 H 1.22 H Est Glomerular Filtrat Rate mL/min Glucose Level 146 104 # Calcium Level 10.0 9.6 Total Bilirubin 0.3 0.3 Direct Bilirubin 0.00 0.00 Indirect Bilirubin 0.3 0.3 Aspartate Amino 26 37 Transf (AST/SGOT) Alanine 16 11 L Aminotransferase ( ALT/SGPT) Alkaline 71 75 Phosphatase Troponin I 0.027 B-Type Natriuretic 2590 H Peptide Total Protein 7.8 7.9 Albumin 4.6 4.5 Globulin 3.20 3.40 H Albumin/Globulin 1.43 1.32 Ratio Lipase 134 Prothrombin Time 12.7 Prothrombin Time 1.0 Ratio INR International 0.94 Normalized Ratio Activated 27.[address] Time Magnesium Level 1.9 Bedside Glucose 104 180 Test 03/09/19 16:54 Bedside Glucose 147 Medications Medications Current Medications IV Flush (NS 3 ml) 3 ml PER PROTOCOL IV ; Start 03/09/19 at 01:30 Ondansetron HCl (Zofran Inj) 4 mg Q6H PRN IV NAUSEA/VOMITING; Start 03/09/19 at 01:30 Aspirin (Aspirin) 81 mg DAILY PO Last administered on 03/09/19at 08:31; Admin Dose 81 MG; Start 03/09/19 at 09:00 Nitroglycerin (Nitroglycerin (Sl Tab) 0.4 Mg) 1 tab Q5M PRN SL .CHEST PAIN; Start 03/09/19 at 01:30 Acetaminophen (Tylenol Tab) 650 mg Q6H PRN PO .PAIN 1-3 OR TEMP; Start 03/09/19 at 01:30 Docusate Sodium (Colace) 100 mg Q12H PRN PO .CONSTIPATION; Start 03/09/19 at 01:30 Bisacodyl (Dulcolax) 5 mg DAILY PRN PO .CONSTIPATION; Start 03/09/19 at 01:30 Diagnostic Test (Pha) (Accu-Chek) 1 ea 02 XX ; Start 03/09/19 at 02:00 Insulin Aspart (Novolog Insulin Pen) NOVOLOG *MILD* ALGORITHM WITH MEALS BEDTIME SC Last administered on 03/09/19at 16:59; Admin Dose 1 UNIT; Start 03/09/19 at 07:55 Miscellaneous Information 1 ea NOTE XX ; Start 03/09/19 at 02:00 Glucose (Glutose) 15 gm Q15M PRN PO DECREASED GLUCOSE; Start 03/09/19 at 02:00 Glucose (Glutose) 22.5 gm Q15M PRN PO DECREASED GLUCOSE; Start 03/09/19 at 02:00 Dextrose (D50w Syringe) 25 ml Q15M PRN IV DECREASED GLUCOSE; Start 03/09/19 at 02:00 Dextrose (D50w Syringe) 50 ml Q15M PRN IV DECREASED GLUCOSE; Start 03/09/19 at 02:00 Glucagon (Glucagen) 1 mg Q15M PRN IM DECREASED GLUCOSE; Start 03/09/19 at 02:00 Glucose (Glutose) 15 gm Q15M PRN BUCCAL DECREASED GLUCOSE; Start 03/09/19 at 02:00 Ceftriaxone Sodium 50 ml @ 100 mls/hr Q24H IVPB ; Start 03/10/19 at 01:00 Amlodipine Besylate (Norvasc) 5 mg DAILY PO Last administered on 03/09/19at 11:06; Admin Dose 5 MG; Start 03/09/19 at 09:30 Aspirin (Halfprin) 81 mg DAILY PO ; Start 03/10/19 at 09:00 Atorvastatin Calcium (Lipitor) 80 mg DAILY PO ; Start 03/10/19 at 09:00 Folic Acid (Folic Acid) 1 mg DAILY PO Last administered on 03/09/19at 11:06; Admin Dose 1 MG; Start 03/09/19 at 09:30 Benztropine Mesylate (Cogentin) 0.5 mg DAILY PO Last administered on 03/09/19at 11:06; Admin Dose 0.5 MG; Start 03/09/19 at 09:30 Citalopram Hydrobromide (Celexa) 20 mg DAILY PO Last administered on 03/09/19at 11:06; Admin Dose 20 MG; Start 03/09/19 at 09:30 Metoprolol Tartrate (Lopressor) 2.5 mg Q6H PRN IV HEART RATE GREATER THAN 115; Start 03/09/19 at 09:30 Enoxaparin Sodium (Lovenox) 65 mg Q12 SC Last administered on 03/09/19at 11:13; Admin Dose 65 MG; Start 03/09/19 at 10:30 Furosemide (Lasix) 40 mg DAILY PO Last administered on 03/09/19at 11:07; Admin Do se 40 MG; Start 03/09/19 at 10:30 Sotalol HCl (Betapace) 40 mg BID PO ; Start 03/09/19 at 21:00; Status UNV GIGI VILLANUEVA MD Mar 09, 2019 17:32
[2019-03-09] MEDS: SOTALOL 80 MG TAB PO SCH (20:42)
[2019-03-09] MEDS: DIPHENHYDRAMINE 50 MG CAP PO SCH (22:00)
[2019-03-10] VITALS (12 sets, daily range): BP systolic 131–190; BP diastolic 52–105; PULSE 49–67; RESP 18–20
[2019-03-10] MEDS ORDERED: CEFTRIAXONE 1 GM/50 ML (PMX) 50 ML IVPB SCH (01:00)
[2019-03-10] MEDS: ACCU-CHEK XX SCH (02:00)
[2019-03-10] MEDS: INSULIN ASPART [NOVOLOG] 3 ML PEN SC SCH ×4 (07:48→21:00)
[2019-03-10] MEDS ORDERED: POTASSIUM CHLORIDE (SR) 20 MEQ TAB PO STA (07:48)
--- NOTE | 2019-03-10 07:54 | CONS ---
Consult Date/Type/Reason Admit Date/Time Mar 09, 2019 at 01:31 Initial Consult Date 03/09/19 Requesting Provider: AMRIT CONDE Date/Time of Note DATE: 03/10/19 TIME: 07:48 Subjective Interventional cardiology follow-up progress note Subjective: Discussed with the staff telemetry was reviewed patient has remained sinus rhythm with normal episode of atrial fibrillation. No chest pain or pressure feeling better today d/w daughter Objective: General: no acute distress HEENT: NC/AT. pupils are equal. round. NECK: NO JVD. no stridor. CV: RRR. systolic murmur; no gallop or rubs. PULM: no wheezing or rhonchi. Chest: Status post sternotomy GI: SOFT, NT, ND, no rebound or guarding Extremity: trace B/L LE edema. no clubbing. neuro: awake and alert, OX3. Psych: calm and pleasant rectal: deferred echo reviewed There is mild enlargement of left atrium. Normal left ventricular systolic function. Normal left ventricular cavity size. Mild concentric left ventricular hypertrophy. Ejection fraction is visually estimated at 65 %. Tissue Doppler/Mitral Doppler indices are consistent with impaired relaxation (Stage I diastolic dysfunction). Mitral valve leaflets appear mildly thickened. Moderate mitral annular calcification. Trace mitral regurgitation. Aortic Valve is proobably Bio Prosthesis. Aortic valve Max velocity 2.67 m/sec. Max PG 28.50 mmHg. Mean PG 18.00 mmHg. Aortic cusps appear mildly calcified. Normal appearance of the tricuspid valve. The estimated Peak RVSP is 42 mmHg. There is mild tricuspid regurgitation. Objective Vitals Vital Signs Date Temp Pulse Resp B/P (MAP) Pulse Ox O2 O2 Flow FiO2 Time Delivery Rate 03/10/19 98.2 64 165/69 94 07:35 (101) 03/10/19 00:04 03/09/19 Room Air 04:35 Intake and Output 03/09/19 03/09/19 03/10/19 1515:00 23:00 07:00 IntakeIntake Total 300 ml OutputOutput Total 1 ml BalanceBalance 299 ml Results/Medications Result Diagram: 03/10/19 0646 03/10/19 0646 Results 24 hrs Laboratory Tests Test 03/09/19 07:55 03/09/19 11:18 03/09/19 16:54 03/09/19 20:32 Bedside Glucose 104 180 147 156 Test 03/10/19 06:46 White Blood Count 5.9 # Red Blood Count 3.72 L Hemoglobin 11.3 L Hematocrit 33.7 L Mean Corpuscular Volume 90.6 Mean Corpuscular 30.4 Hemoglobin Mean Corpuscular 33.5 Hemoglobin Concent Red Cell Distribution 12.8 Width Platelet Count 242 Mean Platelet Volume 11.2 H Immature Granulocytes % 0.500 H Neutrophils % 51.3 Lymphocytes % 29.2 Monocytes % 10.7 Eosinophils % 7.5 H Basophils % 0.8 Nucleated Red Blood 0.0 Cells % Immature Granulocytes # 0.030 Neutrophils # 3.0 Lymphocytes # 1.7 Monocytes # 0.6 Eosinophils # 0.4 Basophils # 0.1 Nucleated Red Blood 0.0 Cells # Sodium Level 143 Potassium Level 3.5 Chloride Level 105 Carbon Dioxide Level 28 Anion Gap 10 Blood Urea Nitrogen 35 H Creatinine 1.26 H Est Glomerular Filtrat Rate mL/min Glucose Level 109 Hemoglobin A1c 5.1 Calcium Level 9.5 Magnesium Level 1.8 Total Bilirubin 0.3 Direct Bilirubin 0.00 Indirect Bilirubin 0.3 Aspartate Amino 27 Transf (AST/SGOT) Alanine 14 Aminotransferase (ALT/SG PT) Alkaline Phosphatase 67 Total Protein 7.4 Albumin 4.2 Globulin 3.20 Albumin/Globulin Ratio 1.31 Triglycerides Level 150 H Cholesterol Level 158 LDL Cholesterol, 97 Calculated HDL Cholesterol 31 L Cholesterol/HDL Ratio 5.0 Thyroid Stimulating Pending Hormone (TSH) Home Meds Reported Medications Paliperidone Palmitate (Invega Sustenna) 234 Mg/1.5 Ml Disp.syrin, IM every 3 months 03/09/19 Labetalol Hcl* (Labetalol Hcl*) 200 Mg Tablet, 0.5 BID 03/09/19 Solifenacin* (Vesicare*) 5 Mg Tablet, 1 HS 03/08/19 Ferrous Sulfate (Iron) 325 Mg Capsule.er, 1 DAILY 03/08/19 Atorvastatin* (Atorvastatin*) 40 Mg Tablet, 1 DAILY 03/08/19 Furosemide (Lasix) 40 Mg Tab, 1 DAILY 03/08/19 Benztropine Mesylate* (Benztropine Mesylate*) 0.5 Mg Tablet, 1 DAILY 03/08/19 Amlodipine Besylate* (Amlodipine Besylate*) 5 Mg Tablet, 1 DAILY 03/08/19 Folic Acid* (Folic Acid*) 1 Mg Tablet, 1 DAILY 03/08/19 Aspirin (Aspirin Low Dose) 81 Mg Tablet.dr, 1 DAILY 03/08/19 Hydralazine Hcl* (Hydralazine Hcl*) 50 Mg Tab, 1 BID 03/08/19 Docusate Sodium (Dok) 100 Mg Capsule, 1 bid prn 03/08/19 Citalopram Hydrobromide* (Citalopram Hydrobromide*) 20 Mg Tablet, 1 DAILY 03/08/19 Calcium Carbonate/Vitamin D2 (Oyster Calcium 250 Mg +D Tab) 1 Tab Tablet, 1 BID 03/08/19 Potassium Chloride (Klor-Con M20) 20 Meq Tab.prt.sr, 1 DAILY 03/08/19 Metformin* (Glucophage*) 1,000 Mg Tablet, 1 BID 03/08/19 Discontinued Reported Medications Labetalol Hcl* (Labetalol Hcl*) 200 Mg Tablet, 1 BID 03/08/19 Medications Current Medications IV Flush (NS 3 ml) 3 ml PER PROTOCOL IV ; Start 03/09/19 at 01:30 Ondansetron HCl (Zofran Inj) 4 mg Q6H PRN IV NAUSEA/VOMITING; Start 03/09/19 at 01:30 Aspirin (Aspirin) 81 mg DAILY PO Last administered on 03/09/19at 08:31; Admin Dose 81 MG; Start 03/09/19 at 09:00 Nitroglycerin (Nitroglycerin (Sl Tab) 0.4 Mg) 1 tab Q5M PRN SL .CHEST PAIN; Start 03/09/19 at 01:30 Acetaminophen (Tylenol Tab) 650 mg Q6H PRN PO .PAIN 1-3 OR TEMP; Start 03/09/19 at 01:30 Docusate Sodium (Colace) 100 mg Q12H PRN PO .CONSTIPATION; Start 03/09/19 at 01:30 Bisacodyl (Dulcolax) 5 mg DAILY PRN PO .CONSTIPATION; Start 03/09/19 at 01:30 Diagnostic Test (Pha) (Accu-Chek) 1 ea 02 XX ; Start 03/09/19 at 02:00 Insulin Aspart (Novolog Insulin Pen) NOVOLOG *MILD* ALGORITHM WITH MEALS BEDTIME SC Last administered on 03/10/19at 07:48; Admin Dose 2 UNIT; Start 03/09/19 at 07:55 Miscellaneous Information 1 ea NOTE XX ; Start 03/09/19 at 02:00 Glucose (Glutose) 15 gm Q15M PRN PO DECREASED GLUCOSE; Start 03/09/19 at 02:00 Glucose (Glutose) 22.5 gm Q15M PRN PO DECREASED GLUCOSE; Start 03/09/19 at 02:00 Dextrose (D50w Syringe) 25 ml Q15M PRN IV DECREASED GLUCOSE; Start 03/09/19 at 02:00 Dextrose (D50w Syringe) 50 ml Q15M PRN IV DECREASED GLUCOSE; Start 03/09/19 at 02:00 Glucagon (Glucagen) 1 mg Q15M PRN IM DECREASED GLUCOSE; Start 03/09/19 at 02:00 Glucose (Glutose) 15 gm Q15M PRN BUCCAL DECREASED GLUCOSE; Start 03/09/19 at 02:00 Ceftriaxone Sodium 50 ml @ 100 mls/hr Q24H IVPB Last administered on 03/10/19at 00:44; Admin Dose 100 MLS/HR; Start 03/10/19 at 01:00 Amlodipine Besylate (Norvasc) 5 mg DAILY PO Last administered on 03/09/19at 11:06; Admin Dose 5 MG; Start 03/09/19 at 09:30 Aspirin (Halfprin) 81 mg DAILY PO ; Start 03/10/19 at 09:00 Atorvastatin Calcium (Lipitor) 80 mg DAILY PO ; Start 03/10/19 at 09:00 Folic Acid (Folic Acid) 1 mg DAILY PO Last administered on 03/09/19at 11:06; Admin Dose 1 MG; Start 03/09/19 at 09:30 Benztropine Mesylate (Cogentin) 0.5 mg DAILY PO Last administered on 03/09/19at 11:06; Admin Dose 0.5 MG; Start 03/09/19 at 09:30 Citalopram Hydrobromide (Celexa) 20 mg DAILY PO Last administered on 03/09/19at 11:06; Admin Dose 20 MG; Start 03/09/19 at 09:30 Metoprolol Tartrate (Lopressor) 2.5 mg Q6H PRN IV HEART RATE GREATER THAN 115; Start 03/09/19 at 09:30 Enoxaparin Sodium (Lovenox) 65 mg Q12 SC Last administered on 03/09/19at 20:37; Admin Dose 65 MG; Start 03/09/19 at 10:30 Furosemide (Lasix) 40 mg DAILY PO Last administered on 03/09/19at 11:07; Admin Dose 40 MG; Start 03/09/19 at 10:30 Sotalol HCl (Betapace) 40 mg BID PO Last administered on 03/09/19at 20:42; Admin Dose 40 MG; Start 03/09/19 at 21:00 Diphenhydramine HCl (Benadryl) 50 mg HS PO ; Start 03/09/19 at 22:00 Assessment/Plan Hospital Course (Demo Recall) 1. Atrial fibrillation rapid ventricular response has converted back to sinus rhythm now 2. Dizziness orthostatic symptoms tolerated above 3. History of hypertension 4. History of valvular heart disease likely aortic valve replacement 5. Diabetes 6. Dyslipidemia 7. History of schizophrenia Recommendation: Continue with aspirin for now. Monitor on telemetry leg swelling: Potassium magnesium to be replaced to keep magnesium above 2 potassium above 4 sotalol was added to her regimen to replace the labetalol. We will continue the rest of her blood pressure medications. Thyroid function test has been ordered. to be followed DC planning when ok with IM. PT to follow up with me in office in 2 weeks. Thank you for this referral. We will continue to follow along with you GIGI VILLANUEVA MD [facility] GIGI VILLANUEVA MD Mar 10, 2019 07:54
[2019-03-10] MEDS: ASPIRIN 81 MG TAB PO SCH (08:22)
[2019-03-10] MEDS: BENZTROPINE 1 MG TAB PO SCH (08:23)
[2019-03-10] MEDS: ASPIRIN (EC) 81 MG TAB PO SCH (08:23)
[2019-03-10] MEDS: CITALOPRAM 20 MG TAB PO SCH (08:23)
[2019-03-10] MEDS: FUROSEMIDE 40 MG TAB PO SCH (08:23)
[2019-03-10] MEDS: FOLIC ACID 1 MG TAB PO SCH (08:24)
[2019-03-10] MEDS: ATORVASTATIN 40 MG TAB PO SCH (08:24)
[2019-03-10] MEDS: SOTALOL 80 MG TAB PO SCH ×2 (08:24→20:26)
[2019-03-10] MEDS: AMLODIPINE 5 MG TAB PO SCH ×2 (08:25→20:26)
[2019-03-10] MEDS: ENOXAPARIN 80 MG/0.8 ML SYG SC SCH ×2 (08:29→20:32)
[2019-03-10] MEDS ORDERED: MAGNESIUM SULFATE 3 GM in DEXTROSE 5% 100 ML IVPB ONE (09:00)
[2019-03-10] MEDS ORDERED: ASPI-1044 PO (12:00)
[2019-03-10] MEDS ORDERED: FURO40TA4 PO (12:00)
[2019-03-10] MEDS ORDERED: ATOR40TA68 PO (12:00)
[2019-03-10] MEDS ORDERED: METF500T24 PO (12:00)
[2019-03-10] MEDS ORDERED: POTA20TA9 PO (12:00)
[2019-03-10] MEDS ORDERED: AMLO-145 PO (12:00)
[2019-03-10] MEDS ORDERED: SOTA80TA18 PO (12:00)
--- NOTE | 2019-03-10 12:06 | PDOCDIS ---
Discharge Instructions DIAGNOSIS Discharge Diagnosis 1. A. fib with RVR. 2. Near syncope. 3. CAD. 4. Acute kidney injury. 5. Reported elevated BNP. 6. Diabetes. 7. Hyperlipidemia. 8. History of breast cancer. HOME CARE INSTRUCTIONS: [id number] Diet Instructions: [id number] Low Fat /Cholesterol [id number] Special Diet: [id number] carbohydrate controlled. FOLLOW UP/APPOINTMENTS Follow-up Plan 1. Follow up with Dr. Collins Cross ([employer]) in one week Office Address [id number] [place] [id number] Office 2. Follow up with your primary care doctor in 1-2 weeks WENCESLAO LARES NP Mar 10, 2019 12:06
[2019-03-10] MEDS: hydrALAzine 20 MG INJ IV PRN ×2 (15:54→20:33)
--- NOTE | 2019-03-10 19:56 | PN ---
Date/Time of Note Date/Time of Note DATE: 03/10/19 TIME: 19:54 Assessment/Plan VTE Prophylaxis Risk score (from [facility])>0 risk: 2 SCD applied (from [facility]): Yes Pharmacological prophylaxis: LMWH Lines/Catheters IV Catheter Type (from [facility] Saline Lock Assessment/Plan Hospital Course Assessment and plan 1. A. fib with RVR. - Was given Cardizem 10 mg IV x1 and now appears to be normal sinus rhythm. - Continue telemetry monitoring. - Labor Relations Director following - improved 2. Near syncope. - Likely secondary to #1. - Suspect orthostatic hypotension. - Carotid Doppler with no evidence of hemodynamically significant stenosis. 3. CAD. - Continue statin and antiplatelet therapy. 4. Acute kidney injury. - Monitor renal panel. - Avoid nephrotoxic medications. - Appears to be improving at present. 5. Reported elevated BNP. - continue medical optimization 6. Diabetes. - Continue insulin regimen. - Will adjust as needed. 7. Hyperlipidemia. - Continue statin 8. History of breast cancer. - Patient for outpatient follow-up Disposition and plan. Still with high BP. BP medications adjusted. Await improvement. Anticipate d/c within the next 24 hours if improved Discussed POC with Dr. Christina Result Diagram: 03/10/19 0646 03/10/19 0646 Results 24hrs Laboratory Tests Test 03/09/19 20:32 03/10/19 06:46 03/10/19 07:43 03/10/19 11:32 Bedside Glucose 156 212 95 White Blood Count 5.9 # Red Blood Count 3.72 L Hemoglobin 11.3 L Hematocrit 33.7 L Mean Corpuscular Volume 90.6 Mean Corpuscular 30.4 Hemoglobin Mean Corpuscular 33.5 Hemoglobin Concent Red Cell Distribution 12.8 Width Platelet Count 242 Mean Platelet Volume 11.2 H Immature Granulocytes % 0.500 H Neutrophils % 51.3 Lymphocytes % 29.2 Monocytes % 10.7 Eosinophils % 7.5 H Basophils % 0.8 Nucleated Red Blood 0.0 Cells % Immature Granulocytes # 0.030 Neutrophils # 3.0 Lymphocytes # 1.7 Monocytes # 0.6 Eosinophils # 0.4 Basophils # 0.1 Nucleated Red Blood 0.0 Cells # Sodium Level 143 Potassium Level 3.5 Chloride Level 105 Carbon Dioxide Level 28 Anion Gap 10 Blood Urea Nitrogen 35 H Creatinine 1.26 H Est Glomerular Filtrat Rate mL/min Glucose Level 109 Hemoglobin A1c 5.1 Calcium Level 9.5 Magnesium Level 1.8 Total Bilirubin 0.3 Direct Bilirubin 0.00 Indirect Bilirubin 0.3 Aspartate Amino 27 Transf (AST/SGOT) Alanine 14 Aminotransferase (ALT/SG PT) Alkaline Phosphatase 67 Total Protein 7.4 Albumin 4.2 Globulin 3.20 Albumin/Globulin Ratio 1.31 Triglycerides Level 150 H Cholesterol Level 158 LDL Cholesterol, 97 Calculated HDL Cholesterol 31 L Cholesterol/HDL Ratio 5.0 Thyroid Stimulating 3.530 Hormone (TSH) Test 03/10/19 16:55 Bedside Glucose 112 Subjective 24 Hr Interval Summary Free Text/Dictation denies any chest pain , denies any palpitations. Exam/Review of Systems Exam Vitals Vital Signs Date Temp Pulse Resp B/P (MAP) Pulse Ox O2 O2 Flow FiO2 Time Delivery Rate 03/10/19 98.1 67 18 190/79 96 Room Air 19:35 (116) Intake and Output 03/09/19 03/09/19 03/10/19 1515:00 23:00 07:00 IntakeIntake Total 300 ml OutputOutput Total 1 ml BalanceBalance 299 ml Exam Constitutional: alert, oriented Psych: nl mood/affect Neck: supple Respiratory: clear to auscultation, normal air movement Cardiovascular: other (regular rate ) Gastrointestinal: soft, non-tender Musculoskeletal: No swelling Neurological: OUTBOUND SALES CONSULTANT II-XII intact, nl mental status, nl speech Results Results 24hrs Laboratory Tests Test 03/09/19 20:32 03/10/19 06:46 03/10/19 07:43 03/10/19 11:32 Bedside Glucose 156 212 95 White Blood Count 5.9 # Red Blood Count 3.72 L Hemoglobin 11.3 L Hematocrit 33.7 L Mean Corpuscular Volume 90.6 Mean Corpuscular 30.4 Hemoglobin Mean Corpuscular 33.5 Hemoglobin Concent Red Cell Distribution 12.8 Width Platelet Count 242 Mean Platelet Volume 11.2 H Immature Granulocytes % 0.500 H Neutrophils % 51.3 Lymphocytes % 29.2 Monocytes % 10.7 Eosinophils % 7.5 H Basophils % 0.8 Nucleated Red Blood 0.0 Cells % Immature Granulocytes # 0.030 Neutrophils # 3.0 Lymphocytes # 1.7 Monocytes # 0.6 Eosinophils # 0.4 Basophils # 0.1 Nucleated Red Blood 0.0 Cells # Sodium Level 143 Potassium Level 3.5 Chloride Level 105 Carbon Dioxide Level 28 Anion Gap 10 Blood Urea Nitrogen 35 H Creatinine 1.26 H Est Glomerular Filtrat Rate mL/min Glucose Level 109 Hemoglobin A1c 5.1 Calcium Level 9.5 Magnesium Level 1.8 Total Bilirubin 0.3 Direct Bilirubin 0.00 Indirect Bilirubin 0.3 Aspartate Amino 27 Transf (AST/SGOT) Alanine 14 Aminotransferase (ALT/SG PT) Alkaline Phosphatase 67 Total Protein 7.4 Albumin 4.2 Globulin 3.20 Albumin/Globulin Ratio 1.31 Triglycerides Level 150 H Cholesterol Level 158 LDL Cholesterol, 97 Calculated HDL Cholesterol 31 L Cholesterol/HDL Ratio 5.0 Thyroid Stimulating 3.530 Hormone (TSH) Test 03/10/19 16:55 Bedside Glucose 112 Medications Medication Current Medications IV Flush (NS 3 ml) 3 ml PER PROTOCOL IV ; Start 03/09/19 at 01:30 Ondansetron HCl (Zofran Inj) 4 mg Q6H PRN IV NAUSEA/VOMITING; Start 03/09/19 at 01:30 Nitroglycerin (Nitroglycerin (Sl Tab) 0.4 Mg) 1 tab Q5M PRN SL .CHEST PAIN; Start 03/09/19 at 01:30 Acetaminophen (Tylenol Tab) 650 mg Q6H PRN PO .PAIN 1-3 OR TEMP; Start 03/09/19 at 01:30 Docusate Sodium (Colace) 100 mg Q12H PRN PO .CONSTIPATION; Start 03/09/19 at 01:30 Bisacodyl (Dulcolax) 5 mg DAILY PRN PO .CONSTIPATION; Start 03/09/19 at 01:30 Diagnostic Test (Pha) (Accu-Chek) 1 ea 02 XX ; Start 03/09/19 at 02:00 Insulin Aspart (Novolog Insulin Pen) NOVOLOG *MILD* ALGORITHM WITH MEALS BEDT MIRA SC Last administered on 03/10/19at 07:48; Admin Dose 2 UNIT; Start 03/09/19 at 07:55 Miscellaneous Information 1 ea NOTE XX ; Start 03/09/19 at 02:00 Glucose (Glutose) 15 gm Q15M PRN PO DECREASED GLUCOSE; Start 03/09/19 at 02:00 Glucose (Glutose) 22.5 gm Q15M PRN PO DECREASED GLUCOSE; Start 03/09/19 at 02:00 Dextrose (D50w Syringe) 25 ml Q15M PRN IV DECREASED GLUCOSE; Start 03/09/19 at 02:00 Dextrose (D50w Syringe) 50 ml Q15M PRN IV DECREASED GLUCOSE; Start 03/09/19 at 02:00 Glucagon (Glucagen) 1 mg Q15M PRN IM DECREASED GLUCOSE; Start 03/09/19 at 02:00 Glucose (Glutose) 15 gm Q15M PRN BUCCAL DECREASED GLUCOSE; Start 03/09/19 at 02:00 Aspirin (Halfprin) 81 mg DAILY PO Last administered on 03/10/19 08:23; Admin Dose 81 MG; Start 03/10/19 at 09:00 Atorvastatin Calcium (Lipitor) 80 mg DAILY PO Last administered on 03/10/19 08:24; Admin Dose 80 MG; Start 03/10/19 at 09:00 Folic Acid (Folic Acid) 1 mg DAILY PO Last administered on 03/10/19 08:24; Admin Dose 1 MG; Start 03/09/19 at 09:30 Benztropine Mesylate (Cogentin) 0.5 mg DAILY PO Last administered on 03/10/19 08:23; Admin Dose 0.5 MG; Start 03/09/19 at 09:30 Citalopram Hydrobromide (Celexa) 20 mg DAILY PO Last administered on 03/10/19 08:23; Admin Dose 20 MG; Start 03/09/19 at 09:30 Metoprolol Tartrate (Lopressor) 2.5 mg Q6H PRN IV HEART RATE GREATER THAN 115; Start 03/09/19 at 09:30 Enoxaparin Sodium (Lovenox) 65 mg Q12 SC Last administered on 03/10/19 08:29; Admin Dose 65 MG; Start 03/09/19 at 10:30 Furosemide (Lasix) 40 mg DAILY PO Last administered on 03/10/19 08:23; Admin Dose 40 MG; Start 03/09/19 at 10:30 Sotalol HCl (Betapace) 40 mg BID PO Last administered on 03/10/19 08:24; Admin Dose 40 MG; Start 03/09/19 at 21:00 Diphenhydramine HCl (Benadryl) 50 mg HS PO ; Start 03/09/19 at 22:00 Levofloxacin (Levaquin) 500 mg DAILY@06 PO ; Start 03/11/19 at 06:00 Hydralazine HCl (Apresoline) 10 mg Q4H PRN IV SBP >160 Last administered on 03/10/19at 15:54; Admin Dose 10 MG; Start 03/10/19 at 15:30 Amlodipine Besylate (Norvasc) 5 mg BID PO ; Start 03/10/19 at 21:00; Status UNV WENCESLAO LARES NP Mar 10, 2019 19:56
[2019-03-10] MEDS: DIPHENHYDRAMINE 50 MG CAP PO SCH (21:00)
[2019-03-11] MEDS: ACCU-CHEK XX SCH (01:19)
[2019-03-11 04:10] VITALS: BP 148/72; PULSE 54; RESP 17
[2019-03-11] MEDS ORDERED: LEVOFLOXACIN 500 MG TAB PO SCH (06:00)
[2019-03-11 07:50] VITALS: BP_SYST 18; BP_SYST 189; BP_DIAS 78; PULSE 56
[2019-03-11] MEDS: INSULIN ASPART [NOVOLOG] 3 ML PEN SC SCH ×3 (07:55→17:50)
--- NOTE | 2019-03-11 08:53 | CONS ---
Consult Date/Type/Reason Admit Date/Time Mar 09, 2019 at 01:31 Initial Consult Date 03/09/19 Type of Consultation: cv Requesting Provider: AMRIT CONDE Date/Time of Note DATE: 03/11/19 TIME: 08:52 Subjective Interventional cardiology follow-up progress note Subjective: Discussed with the staff telemetry was reviewed patient has remained sinus rhythm with normal episode of atrial fibrillation. No chest pain or pressure feeling better today d/w daughter Patient has been intermittently hypertensive Objective: General: no acute distress HEENT: NC/AT. pupils are equal. round. NECK: NO JVD. no stridor. CV: RRR. systolic murmur; no gallop or rubs. PULM: no wheezing or rhonchi. Chest: Status post sternotomy GI: SOFT, NT, ND, no rebound or guarding Extremity: trace B/L LE edema. no clubbing. neuro: awake and alert, OX3. Psych: calm and pleasant rectal: deferred echo reviewed There is mild enlargement of left atrium. Normal left ventricular systolic function. Normal left ventricular cavity size. Mild concentric left ventricular hypertrophy. Ejection fraction is visually estimated at 65 %. Tissue Doppler/Mitral Doppler indices are consistent with impaired relaxation (Stage I diastolic dysfunction). Mitral valve leaflets appear mildly thickened. Moderate mitral annular calcification. Trace mitral regurgitation. Aortic Valve is proobably Bio Prosthesis. Aortic valve Max velocity 2.67 m/sec. Max PG 28.50 mmHg. Mean PG 18.00 mmHg. Aortic cusps appear mildly calcified. Normal appearance of the tricuspid valve. The estimated Peak RVSP is 42 mmHg. There is mild tricuspid regurgitation. Objective Vitals Vital Signs Date Temp Pulse Resp B/P (MAP) Pulse Ox O2 O2 Flow FiO2 Time Delivery Rate 03/11/19 98.1 56 189/78 98 07:50 (115) 1803/11/19 17 Room Air 04:10 Intake and Output 03/10/19 03/10/19 03/11/19 1515:00 23:00 07:00 IntakeIntake Total 460 ml 300 ml 300 ml BalanceBalance 460 ml 300 ml 300 ml Results/Medications Result Diagram: 03/11/19 0543 03/11/19 0543 Results 24 hrs Laboratory Tests Test 03/10/19 11:32 03/10/19 16:55 03/10/19 20:19 03/11/19 05:43 Bedside Glucose 95 112 147 White Blood Count 6.7 Red Blood Count 3.93 L Hemoglobin 12.1 Hematocrit 35.3 L Mean Corpuscular Volume 89.8 Mean Corpuscular 30.8 Hemoglobin Mean Corpuscular 34.3 Hemoglobin Concent Red Cell Distribution 12.9 Width Platelet Count 258 Mean Platelet Volume 11.2 H Immature Granulocytes % 0.300 Neutrophils % 55.4 Lymphocytes % 26.8 Monocytes % 10.2 Eosinophils % 6.6 Basophils % 0.7 Nucleated Red Blood 0.0 Cells % Immature Granulocytes # 0.020 Neutrophils # 3.7 Lymphocytes # 1.8 Monocytes # 0.7 Eosinophils # 0.4 Basophils # 0.1 Nucleated Red Blood 0.0 Cells # Sodium Level 142 Potassium Level 3.6 Chloride Level 105 Carbon Dioxide Level 28 Anion Gap 9 Blood Urea Nitrogen 27 H Creatinine 1.07 H Est Glomerular Filtrat Rate mL/min Glucose Level 116 Calcium Level 9.4 Total Bilirubin 0.3 Direct Bilirubin 0.00 Indirect Bilirubin 0.3 Aspartate Amino 26 Transf (AST/SGOT) Alanine 21 Aminotransferase (ALT/SG PT) Alkaline Phosphatase 73 Total Protein 7.4 Albumin 4.1 Globulin 3.30 H Albumin/Globulin Ratio 1.24 Test 03/11/19 08:30 Bedside Glucose 111 Home Meds Active Scripts Furosemide* (Furosemide*) 40 Mg Tablet, 40 MG PO DAILY, #30 TAB Prov:WENCESLAO LARES NP 03/10/19 Sotalol HCl (Betapace) 80 Mg Tablet, 40 MG PO BID, #60 TAB Prov:WENCESLAO LARES NP 03/10/19 Aspirin Delayed Release (Aspirin Delayed Release) 81 Mg Tablet.dr, 81 MG PO DAILY, #30 TAB Prov:WENCESLAO LARES NP 03/10/19 Amlodipine Besylate* (Amlodipine Besylate*) 5 Mg Tablet, 5 MG PO DAILY, #30 TAB Prov:WENCESLAO LARES NP 03/10/19 Atorvastatin* (Atorvastatin*) 40 Mg Tablet, 80 MG PO DAILY, #30 TAB Prov:WENCESLAO LAERS NP 03/10/19 Potassium Chloride (Klor-Con M20) 20 Meq Tab.prt.sr, 1 MEQ PO DAILY, #15 TAB Prov:WENCESLAO LARES NP 03/10/19 Reported Medications Paliperidone Palmitate (Invega Sustenna) 234 Mg/1.5 Ml Disp.syrin, IM every 3 months 03/09/19 Labetalol Hcl* (Labetalol Hcl*) 200 Mg Tablet, 0.5 BID 03/09/19 Solifenacin* (Vesicare*) 5 Mg Tablet, 1 HS 03/08/19 Ferrous Sulfate (Iron) 325 Mg Capsule.er, 1 DAILY 03/08/19 Atorvastatin* (Atorvastatin*) 40 Mg Tablet, 1 DAILY 03/08/19 Furosemide (Lasix) 40 Mg Tab, 1 DAILY 03/08/19 Benztropine Mesylate* (Benztropine Mesylate*) 0.5 Mg Tablet, 1 DAILY 03/08/19 Amlodipine Besylate* (Amlodipine Besylate*) 5 Mg Tablet, 1 DAILY 03/08/19 Folic Acid* (Folic Acid*) 1 Mg Tablet, 1 DAILY 03/08/19 Aspirin (Aspirin Low Dose) 81 Mg Tablet.dr, 1 DAILY 03/08/19 Hydralazine Hcl* (Hydralazine Hcl*) 50 Mg Tab, 1 BID 03/08/19 Docusate Sodium (Dok) 100 Mg Capsule, 1 bid prn 03/08/19 Citalopram Hydrobromide* (Citalopram Hydrobromide*) 20 Mg Tablet, 1 DAILY 03/08/19 Calcium Carbonate/Vitamin D2 (Oyster Calcium 250 Mg +D Tab) 1 Tab Tablet, 1 BID 03/08/19 Metformin* (Glucophage*) 1,000 Mg Tablet, 1 BID 03/08/19 Discontinued Reported Medications Labetalol Hcl* (Labetalol Hcl*) 200 Mg Tablet, 1 BID 03/08/19 Medications Current Medications IV Flush (NS 3 ml) 3 ml PER PROTOCOL IV ; Start 03/09/19 at 01:30 Ondansetron HCl (Zofran Inj) 4 mg Q6H PRN IV NAUSEA/VOMITING; Start 03/09/19 at 01:30 Nitroglycerin (Nitroglycerin (Sl Tab) 0.4 Mg) 1 tab Q5M PRN SL .CHEST PAIN; Start 03/09/19 at 01:30 Acetaminophen (Tylenol Tab) 650 mg Q6H PRN PO .PAIN 1-3 OR TEMP; Start 03/09/19 at 01:30 Docusate Sodium (Colace) 100 mg Q12H PRN PO .CONSTIPATION; Start 03/09/19 at 01:30 Bisacodyl (Dulcolax) 5 mg DAILY PRN PO .CONSTIPATION; Start 03/09/19 at 01:30 Diagnostic Test (Pha) (Accu-Chek) 1 ea 02 XX ; Start 03/09/19 at 02:00 Insulin Aspart (Novolog Insulin Pen) NOVOLOG *MILD* ALGORITHM WITH MEALS BEDTIME SC Last administered on 03/10/19at 07:48; Admin Dose 2 UNIT; Start 03/09/19 at 07:55 Miscellaneous Information 1 ea NOTE XX ; Start 03/09/19 at 02:00 Glucose (Glutose) 15 gm Q15M PRN PO DECREASED GLUCOSE; Start 03/09/19 at 02:00 Glucose (Glutose) 22.5 gm Q15M PRN PO DECREASED GLUCOSE; Start 03/09/19 at 02:00 Dextrose (D50w Syringe) 25 ml Q15M PRN IV DECREASED GLUCOSE; Start 03/09/19 at 02:00 Dextrose (D50w Syringe) 50 ml Q15M PRN IV DECREASED GLUCOSE; Start 03/09/19 at 02:00 Glucagon (Glucagen) 1 mg Q15M PRN IM DECREASED GLUCOSE; Start 03/09/19 at 02:00 Glucose (Glutose) 15 gm Q15M PRN BUCCAL DECREASED GLUCOSE; Start 03/09/19 at 02:00 Aspirin (Halfprin) 81 mg DAILY PO Last administered on 03/10/19at 08:23; Admin Dose 81 MG; Start 03/10/19 at 09:00 Atorvastatin Calcium (Lipitor) 80 mg DAILY PO Last administered on 03/10/19at 08:24; Admin Dose 80 MG; Start 03/10/19 at 09:00 Folic Acid (Folic Acid) 1 mg DAILY PO Last administered on 03/10/19at 08:24; Admin Dose 1 MG; Start 03/09/19 at 09:30 Benztropine Mesylate (Cogentin) 0.5 mg DAILY PO Last administered on 03/10/19at 08:23; Admin Dose 0.5 MG; Start 03/09/19 at 09:30 Citalopram Hydrobromide (Celexa) 20 mg DAILY PO Last administered on 03/10/19at 08:23; Admin Dose 20 MG; Start 03/09/19 at 09:30 Metoprolol Tartrate (Lopressor) 2.5 mg Q6H PRN IV HEART RATE GREATER THAN 115; Start 03/09/19 at 09:30 Enoxaparin Sodium (Lovenox) 65 mg Q12 SC Last administered on 03/10/19at 20:32; Admin Dose 65 MG; Start 03/09/19 at 10:30 Furosemide (Lasix) 40 mg DAILY PO Last administered on 03/10/19at 08:23; Admin Dose 40 MG; Start 03/09/19 at 10:30 Sotalol HCl (Betapace) 40 mg BID PO Last administered on 03/10/19at 20:26; Admin Dose 40 MG; Start 03/09/19 at 21:00 Diphenhydramine HCl (Benadryl) 50 mg HS PO ; Start 03/09/19 at 22:00 Levofloxacin (Levaquin) 500 mg DAILY@06 PO Last administered on 03/11/19at 06:17; Admin Dose 500 MG; Start 03/11/19 at 06:00 Hydralazine HCl (Apresoline) 10 mg Q4H PRN IV SBP >160 Last administered on 03/10/19at 20:33; Admin Dose 10 MG; Start 03/10/19 at 15:30 Amlodipine Besylate (Norvasc) 5 mg BID PO Last administered on 03/10/19at 20:26; Admin Dose 5 MG; Start 03/10/19 at 21:00 Clonidine (Catapres) 0.1 mg Q4H PRN PO sbp>160; Start 03/10/19 at 20:00 Assessment/Plan Hospital Course (Demo Recall) 1. Atrial fibrillation rapid ventricular response has converted back to sinus rhythm now 2. Dizziness orthostatic symptoms tolerated above 3. History of hypertension; labile and not well controlled 4. History of valvular heart disease likely aortic valve replacement 5. Diabetes 6. Dyslipidemia 7. History of schizophrenia Recommendation: Continue with aspirin for now. sotalol was added to her regimen to replace the labetalol. We will continue with amlodipine 5 mg p.o. twice daily. We will also add lisinopril to her regimen. Thyroid function test has been ordered. to be followed Otherwise okay to discharge from the cardiac standpoint. Clonidine to be given to be used as needed basis PT to follow up with me in office in 2 weeks. Thank you for this referral. We will continue to follow along with you GIGI VILLANUEVA MD [facility] GIGI VILLANUEVA MD Mar 11, 2019 08:53
[2019-03-11] MEDS ORDERED: LISINOPRIL 20 MG TAB PO SCH (09:00)
[2019-03-11] MEDS: ATORVASTATIN 40 MG TAB PO SCH (09:18)
[2019-03-11] MEDS: SOTALOL 80 MG TAB PO SCH (09:21)
[2019-03-11] MEDS: CITALOPRAM 20 MG TAB PO SCH (09:21)
[2019-03-11] MEDS: AMLODIPINE 5 MG TAB PO SCH (09:21)
[2019-03-11] MEDS: FUROSEMIDE 40 MG TAB PO SCH (09:22)
[2019-03-11] MEDS: BENZTROPINE 1 MG TAB PO SCH (09:22)
[2019-03-11] MEDS: FOLIC ACID 1 MG TAB PO SCH (09:22)
[2019-03-11] MEDS: ASPIRIN (EC) 81 MG TAB PO SCH (09:23)
[2019-03-11] MEDS: ENOXAPARIN 80 MG/0.8 ML SYG SC SCH (09:30)
[2019-03-11] MEDS ORDERED: AMLO5TAB4 PO (11:15)
[2019-03-11] MEDS ORDERED: LISI-471 PO (11:15)
[2019-03-11 11:28] VITALS: BP_SYST 134; BP_SYST 18; BP_DIAS 63; PULSE 58
[2019-03-11 15:35] VITALS: BP_SYST 100; BP_SYST 16; BP_DIAS 52; PULSE 52
--- NOTE | 2019-03-11 20:57 | DS ---
Date/Time of Note Date/Time of Note DATE: 03/11/19 TIME: 20:54 Discharge Summary Admission/Discharge Info Admit Date/Time Mar 09, 2019 at 01:31 Discharge Date/Time Mar 11, 2019 at 19:54 Discharge Diagnosis 1. A. fib with RVR. 2. Near syncope. 3. CAD. 4. Acute kidney injury. 5. Reported elevated BNP. 6. Diabetes. 7. Hyperlipidemia. 8. History of breast cancer. Patient Condition: Stable Hospital Course This is a 73-year-old female with history of schizophrenia, hypertension, diabetes, hyperlipidemia, breast cancer, who came to the hospital due to reports of near syncopal episodes that happened prior to admission. Patient reports she was feeling dizzy and lightheaded and was brought to the hospital. She was fo und to be in A. fib with RVR and was given Cardizem 20 mg IV x1 with good response. She was also provided with magnesium. She was also seen by studio operations manager during her stay. EF per echocardiogram was 65% with stage I diastolic dysfunction. We did continue her on aspirin. During her course of stay she did improve. She is otherwise optimized medically with statin and antiplatelet therapy for her history of CAD. We also did wrist get a carotid Doppler with no evidence of hemodynamically significant stenosis. She was resumed on insulin for diabetes and statin for hyperlipidemia. For her history of breast cancer she was advised outpatient follow-up. States she did improve. The plan of care was discussed with the patient. On the day of discharge patient was in stable condition Discussed POC with Dr. Christina [facility] Active Scripts Lisinopril* (Lisinopril*) 20 Mg Tablet, 20 MG PO DAILY, #30 TAB Prov:WENCESLAO LARES NP 03/11/19 Amlodipine Besylate* (Norvasc*) 5 Mg Tablet, 5 MG PO BID, #60 TAB Prov:WENCESLAO LARES NP 03/11/19 Furosemide* (Furosemide*) 40 Mg Tablet, 40 MG PO DAILY, #30 TAB Prov:WENCESLAO LARES NP 03/10/19 Sotalol HCl (Betapace) 80 Mg Tablet, 40 MG PO BID, #60 TAB Prov:WENCESLAO LARES NP 03/10/19 Aspirin Delayed Release (Aspirin Delayed Release) 81 Mg Tablet.dr 81 MG PO DAILY, #30 TAB Prov:WENCESLAO LARES LEAD MASSAGE THERAPIST 03/10/19 Atorvastatin* (Atorvastatin*) 40 Mg Tablet, 80 MG PO DAILY, #30 TAB Prov:WENCESLAO LARES LEAD MASSAGE THERAPIST 03/10/19 Potassium Chloride (Klor-Con M20) 20 Meq Tab.prt.sr, 1 MEQ PO DAILY, #15 TAB Prov:WENCESLAO LARES LEAD MASSAGE THERAPIST 03/10/19 Reported Medications Paliperidone Palmitate (Invega Sustenna) 234 Mg/1.5 Ml Disp.syrin, IM every 3 months 03/09/19 Solifenacin* (Vesicare*) 5 Mg Tablet, 1 HS 03/08/19 Ferrous Sulfate (Iron) 325 Mg Capsule.er, 1 DAILY 03/08/19 Benztropine Mesylate* (Benztropine Mesylate*) 0.5 Mg Tablet, 1 DAILY 03/08/19 Folic Acid* (Folic Acid*) 1 Mg Tablet, 1 DAILY 03/08/19 Citalopram Hydrobromide* (Citalopram Hydrobromide*) 20 Mg Tablet, 1 DAILY 03/08/19 Calcium Carbonate/Vitamin D2 (Oyster Calcium 250 Mg +D Tab) 1 Tab Tablet, 1 BID 03/08/19 Metformin* (Glucophage*) 1,000 Mg Tablet, 1 BID 03/08/19 Discontinued Reported Medications Amlodipine Besylate* (Amlodipine Besylate*) 5 Mg Tablet, 1 DAILY 03/08/19 Labetalol Hcl* (Labetalol Hcl*) 200 Mg Tablet, 0.5 BID 03/09/19 Atorvastatin* (Atorvastatin*) 40 Mg Tablet, 1 DAILY 03/08/19 Furosemide (Lasix) 40 Mg Tab, 1 DAILY 03/08/19 Aspirin (Aspirin Low Dose) 81 Mg Tablet., 1 DAILY 03/08/19 Hydralazine Hcl* (Hydralazine Hcl*) 50 Mg Tab, 1 BID 03/08/19 Docusate Sodium (Dok) 100 Mg Capsule, 1 bid prn 03/08/19 Labetalol Hcl* (Labetalol Hcl*) 200 Mg Tablet, 1 BID 03/08/19 Follow-up Plan 1. Follow up with Dr. Collins Cross (Knockout Man) in one week Office Address [id number] [address] Office 2. Follow up with your primary care doctor in 1-2 weeks Primary Care Provider Adalgisa Mccurdy Time spent on discharge: > 30 minutes Pending Labs Laboratory Tests Test 03/11/19 05:43 03/11/19 08:30 03/11/19 13:21 03/11/19 17:40 White Blood 6.7 Count 10^3/ul (4.8-10 .8) Red Blood 3.93 Count 10^6/ul (4.20-5 .40) Hemoglobin 12.1 g/dl (12.0-16.0 ) Hematocrit 35.3 % (37.0-47.0) Mean 89.8 Corpuscular fl (82.0-101.0) Volume Mean 30.8 Corpuscular pg (29.0-33.0) Hemoglobin Mean 34.3 Corpuscular g/dl (32.0-37.0 Hemoglobin Conc ) ent Red Cell 12.9 Distribution % (11.5-14.5) Width Platelet Count 258 10^3/UL (140-41 5) Mean Platelet 11.2 Volume fl (7.4-10.4) Immature 0.300 Granulocytes % % (0.001-0.429) Neutrophils % 55.4 % (39.0-77.0) Lymphocytes % 26.8 % (15.0-51.0) Monocytes % 10.2 % (0.0-11.0) Eosinophils % 6.6 % (0.0-7.0) Basophils % 0.7 % (0.0-2.0) Nucleated Red 0.0 Blood Cells % /100WBC (0.0-0. 0) Immature 0.020 Granulocytes # 10^3/ul (0.0-0. 031) Neutrophils # 3.7 10^3/ul (1.6-7. 5) Lymphocytes # 1.8 10^3/ul (0.8-2. 9) Monocytes # 0.7 10^3/ul (0.3-0. 9) Eosinophils # 0.4 10^3/ul (0.0-0. 5) Basophils # 0.1 10^3/ul (0.0-0. 1) Nucleated Red 0.0 Blood Cells # 10^3/ul (0.0-0. 0) Sodium Level 142 mmol/L (135-144 ) Potassium 3.6 Level mmol/L (3.5-5.1 ) Chloride Level 105 mmol/L (97-110) Carbon Dioxide 28 Level mmol/L (21-31) Anion Gap 9 (5-13) Blood Urea 27 mg/dl (7-20) Nitrogen Creatinine 1.07 mg/dl (0.44-1.0 0) Est Glomerular mL/min (>60) Filtrat Rate mL/min Glucose Level 116 mg/dl (70-220) Calcium Level 9.4 mg/dl (8.4-10.2 ) Total 0.3 Bilirubin mg/dl (0.2-1.3) Direct 0.00 Bilirubin mg/dl (0.00-0.2 0) Indirect 0.3 Bilirubin mg/dl (0-1.1) Aspartate Amino 26 IU/L (15-46) Transf (AST/SGO T) Alanine 21 IU/L (13-69) Aminotransferas e (ALT/SGPT) Alkaline 73 Phosphatase IU/L (42-121) Total Protein 7.4 g/dl (6.1-8.1) Albumin 4.1 g/dl (3.3-4.9) Globulin 3.30 g/dl (1.3-3.2) Albumin/Globuli 1.24 n Ratio Bedside 111 129 102 Glucose mg/dL (70-220) mg/dL (70-220) mg/dL (70-220) WENCESLAO LARES NP Mar 11, 2019 20:57
== END 2019-03-11 19:54 | disposition home or self-care (01) | DRG 309 ==
LOC: E/R 22:52 → TEL 03-09 01:31
PROVIDERS: ADMIT Family Medicine; ATTEND Family Medicine
DX: I48.91 Unspecified atrial fibrillation (principal); N17.9 Acute kidney failure, unspecified; N39.0 Urinary tract infection, site not specified; E11.9 Type 2 diabetes mellitus without complications; Z95.1 Presence of aortocoronary bypass graft; E86.0 Dehydration; I95.1 Orthostatic hypotension; Z85.3 Personal history of malignant neoplasm of breast; E78.5 Hyperlipidemia, unspecified; F20.9 Schizophrenia, unspecified; Z95.2 Presence of prosthetic heart valve
CPT/HCPCS: 36415; 71045; 80053; 80061; 81001; 82962; 83036; 83690; 83735; 83880; 84443; 84484; 85025; 85610; 85730; 93005; 93306; 93880; 96374; J0360; J0696; J1815; J3475

== ENCOUNTER 2019-03-18 22:50 | Emergency (ER) | payer MEDICARE, OTHER ==
[~2019-03-18] VITALS: Ht 152.4 cm; Wt 64.5 kg
[~2019-03-18 22:50] MED LIST: AMLO5TAB4 PO; ASPI-1044 PO; ATOR40TA68 PO; BENZ0.5T41; CALC-5; CITA20TA8; FERR325C; FOLI-49; FURO40TA4 PO; LISI-471 PO; MTF1000T; PALI234D IM; POTA20TA9 PO; SOLI5TAB2; SOTA80TA18 PO
[2019-03-18 23:24] VITALS: BP 166/74; PULSE 66; RESP 18; Ht 152.4 cm; Wt 64.5 kg
== END 2019-03-19 01:57 | disposition left against medical advice (07) ==
LOC: E/R 22:50
DX: Z53.21 Procedure and treatment not carried out due to patient leaving prior to being seen by health care provider (principal)
CPT/HCPCS: 93005